=== PATIENT | female | born 1975 | race Caucasian/White ===

== ENCOUNTER 2023-01-04 15:22 | Outpatient (CLI) | payer OTHER, SELFPAY ==
[2023-01-04 16:19] LABS: Appearance Urine Cloudy (Clear); Bacteria Urine 4+ /hpf; Bilirubin Urine Negative (Negative); Blood Urine Negative (Negative); Color Urine Dark Yellow (Yellow); Glucose Urine UA Negative (Negative); Ketones Urine 1+ mg/dL (Negative); Leukocyte Esterase Ur 2+ LEU/UL (NEGATIVE); Need Manual Microscopic Reviewed; Nitrate Urine Negative (Negative); Non Pathogenic Casts 0-2; Protein Urine Negative (Negative); RBC Urine 0-2 /hpf (0-2); Specific Grav Ur 1.019 (1.001-1.035); Squamous Epithelial Cell Urine Few /hpf (Few); Urobilinogen Urine 0.2 mg/dL (<2.0)
[2023-01-04 16:21] LABS: Add Urine Microscopic? YES
[2023-01-04 16:38] LABS: Hematocrit 41.9 % (37.0-47.0); Hemoglobin 13.6 g/dL (12.0-15.0); Mean Corpuscular HGB Conc 32.5 g/dl (32-36); Mean Corpuscular Hemoglobin 30.4 pg (26-34); Mean Corpuscular Volume 93.5 fl (80-100); Mean Platelet Volume 9.3 fl (7.4-10.4); Platelet Count Result 297 k/mm3 (150-375); Red Blood Count 4.48 M/mm3 (4.2-5.4); Red Cell Distribution Width 13.2 % (11.5-14.5); White Blood Count 8.9 K/mm3 (4.5-10.0)
[2023-01-04 16:56] LABS: Alanine Aminotransferase 32 U/L (6-35); Albumin Level 3.8 g/dL (3.5-5.1); Alkaline Phosphatase 59 U/L (38-126); Anion Gap 6 mmol/L (8-16); Aspartate Amino Transferase 24 U/L (14-36); Bilirubin,Total 0.4 mg/dL (0.2-1.3); Blood Urea Nitrogen 8 mg/dL (7-17); Calcium 8.7 mg/dL (8.4-10.2); Carbon Dioxide 23 mmol/L (22-30); Chloride 104 mmol/L (98-107); Estimated Glomerular Filt Rate > 60; Glucose 71 mg/dL (65-110); Potassium 3.7 mmol/L (3.4-5.0); Sodium 133 mmol/L (137-145)
[2023-01-04 17:37] LABS: HIV 1/2 Ab P24 Ag Result Negative (Negative)
[2023-01-04 18:08] LABS: Hemoglobin A1C 4.8 % (<5.7)
[2023-01-04 18:28] LABS: Hepatitis B Surface Antigen Negative (Negative)
[2023-01-04 18:45] LABS: Hepatitis C Virus Antibody Negative (Negative)
[2023-01-05 10:29] LABS: Rapid Plasma Reagin Non-Reactive (NonReactive)
[2023-01-10 03:04] LABS: Hematocrit 43.1 % (35.0-45.0); MCH 30.8 pg (27.0-33.0); MCV 94.9 fL (80.0-100.0); RDW 13.1 % (11.0-15.0); Red Blood Cell Count 4.54 Mill/uL (3.80-5.10)
== END 2023-01-04 15:23 | disposition home or self-care (01) ==
LOC: ANHLAB 15:24
PROVIDERS: Visit Provider Obstetrics & Gynecology
DX: Z34.92 Encounter for supervision of normal pregnancy, unspecified, second trimester (principal); Z3A.00 Weeks of gestation of pregnancy not specified
CPT/HCPCS: 36415; 80053; 81001; 83021; 83036; 84443; 85027; 86592; 86703; 86787; 86803; 87086; 87340; G0432

== ENCOUNTER 2023-02-05 15:48 | Outpatient (CLI) | payer OTHER, SELFPAY ==
[2023-02-05 17:37] LABS: Rubella IgG Antibody 25.6 IU/ML
== END 2023-02-05 15:49 | disposition home or self-care (01) ==
LOC: ANHLAB 15:49
PROVIDERS: Visit Provider Registered Nurse
DX: O09.819 Supervision of pregnancy resulting from assisted reproductive technology, unspecified trimester (principal); Z3A.00 Weeks of gestation of pregnancy not specified
CPT/HCPCS: 36415; 86762; 86850; 86900; 86901

== ENCOUNTER 2023-04-03 09:28 | Observation (INO) | payer OTHER, SELFPAY ==
[2023-04-03 09:53] VITALS: BMI 35.2
[2023-04-03 09:57] VITALS: BP 137/75; PULSE 85; PULSE 86; O2SAT 95
--- NOTE | 2023-04-03 09:59 | OBADM ---
This patient, Susie eRa, admitted to the OB room 116 for observation. Patient/family oriented to hospital policies and general routines including ID bracelet, bed and alarms, visiting hours, pain management, procedures, bathroom and other care routines, personal items, smoking policy, room service/diet, and visiting hours. Patient/Family are encouraged to report perceived risks to care and to ask questions if they do not understand what they are told or what they should do.
[2023-04-03 10:00] VITALS: RESP 16; TEMP 36.3
[2023-04-03 10:02] VITALS: PULSE 85; O2SAT 96
[2023-04-03 10:07] VITALS: PULSE 80; O2SAT 96
[2023-04-03 10:12] VITALS: PULSE 78; O2SAT 97
[2023-04-03 10:55] LABS: Appearance Urine Clear (Clear); Bacteria Urine Rare /hpf; Bilirubin Urine Negative (Negative); Blood Urine Negative (Negative); Color Urine Yellow (Yellow); Glucose Urine UA Negative (Negative); Ketones Urine 1+ mg/dL (Negative); Leukocyte Esterase Ur Trace LEU/UL (Negative); Nitrate Urine Negative (Negative); Non Pathogenic Casts 0-2; Protein Urine Negative (Negative); RBC Urine 0-2 /hpf (0-2); Specific Grav Ur 1.011 (1.001-1.035); Squamous Epithelial Cell Urine None seen /hpf (Few); Urobilinogen Urine 0.2 mg/dL (<2.0); WBC Urine 0-5 /hpf; pH Urine 7.5 (5.0-9.0)
[2023-04-03 10:57] LABS: Add Urine Microscopic? YES
--- NOTE | 2023-05-01 11:44 | P.PNOB_ITS ---
OB - Triage/Final Diagnosis Visit Information Comments/Additional reasons for admission: I have assessed the risk for this patient, Susie Rea, and determined that she would benefit from observation care. Evaluation Laboratory results: Laboratory Tests 04/03/23 10:39 Urine Color Yellow Urine Appearance Clear Urine pH 7.5 Ur Specific [place] 1.011 Urine Protein Negative Urine Glucose (UA) Negative Urine Ketones 1+ H Ur Blood (Man) Negative Urine Nitrate Negative Urine Bilirubin Negative Urine Urobilinogen 0.2 Leukocyte Esterase Rfl Trace H Urine RBC 0-2 Urine WBC 0-5 Ur Squamous Epith Cells None seen Urine Bacteria Rare Urine Casts 0-2 Final Diagnosis (1) Threatened labor, antepartum: Code(s): O47.00 - False labor before 37 completed weeks of gestation, unspecified trimester Status: Acute
== END 2023-04-03 12:08 | disposition home or self-care (01) ==
PROVIDERS: Admitting Provider Obstetrics & Gynecology; Visit Provider Obstetrics & Gynecology
DX: O47.02 False labor before 37 completed weeks of gestation, second trimester (principal); Z3A.26 26 weeks gestation of pregnancy
CPT/HCPCS: 81001; G0378; G0379

== ENCOUNTER 2023-04-17 09:04 | Outpatient (CLI) | payer OTHER, SELFPAY ==
[2023-04-17 10:56] LABS: Basophils Percent Auto 0.1 % (0.2-1.2); Eosinophils Absolute Auto 0.3 K/mm3 (0-0.3); Hematocrit 40.1 % (37.0-47.0); Hemoglobin 13.2 g/dL (12.0-15.0); Immature Granulocyte Absolute 0.06 K/mm3 (0.00-0.031); Immature Granulocyte Percent A 0.6 % (0-0.5); Lymphocytes Absolute Auto 1.73 K/mm3 (0.9-3.2); Lymphocytes Percent Auto 17.7 % (18.3-44.2); Mean Corpuscular HGB Conc 32.9 g/dl (32-36); Mean Corpuscular Hemoglobin 30.3 pg (26-34); Mean Corpuscular Volume 92.2 fl (80-100); Mean Platelet Volume 9.6 fl (7.4-10.4); Monocytes Absolute Auto 0.3 K/mm3 (0.1-0.6); Monocytes Percent Auto 3.1 % (2.6-8.5); Neutrophils Absolute Auto 7.4 K/mm3 (1.3-6.7); Neutrophils Percent Auto 75.5 % (45.5-73.1); Platelet Count Result 234 k/mm3 (150-375); Red Blood Count 4.35 M/mm3 (4.2-5.4); Red Cell Distribution Width 13.6 % (11.5-14.5); White Blood Count 9.8 K/mm3 (4.5-10.0)
[2023-04-17 11:01] LABS: Glucose 1 Hour PP 50gm Dose 137 mg/dL
== END 2023-04-17 09:05 | disposition home or self-care (01) ==
PROVIDERS: Visit Provider Nurse Practitioner Family
DX: O09.819 Supervision of pregnancy resulting from assisted reproductive technology, unspecified trimester (principal); Z3A.00 Weeks of gestation of pregnancy not specified
CPT/HCPCS: 36415; 82947; 85025

== ENCOUNTER 2023-04-20 06:58 | Outpatient (CLI) | payer OTHER, SELFPAY ==
[2023-04-20 07:27] LABS: Glucose Fasting Gestational 83 mg/dL (>/=95)
[2023-04-20 09:39] LABS: Glucose 1 Hour Gest 166 mg/dL (>/=180)
[2023-04-20 10:09] LABS: Glucose 2 Hour Gest 150 mg/dL (>/= 155)
[2023-04-20 11:08] LABS: Glucose 3 Hour Gest 110 mg/dL (>/=140)
== END 2023-04-20 06:59 | disposition home or self-care (01) ==
LOC: ANHLAB 07:01
PROVIDERS: Visit Provider Nurse Practitioner Family
DX: O99.810 Abnormal glucose complicating pregnancy (principal); Z3A.00 Weeks of gestation of pregnancy not specified
CPT/HCPCS: 36415; 82951; 82952

== ENCOUNTER 2023-05-16 14:30 | Outpatient (CLI) | payer OTHER, SELFPAY ==
[2023-05-16 14:47] LABS: Basophils Percent Auto 0.3 % (0.2-1.2); Eosinophils Absolute Auto 0.2 K/mm3 (0-0.3); Eosinophils Percent Auto 1.9 % (0-4.4); Hematocrit 40.6 % (37.0-47.0); Hemoglobin 13.4 g/dL (12.0-15.0); Immature Granulocyte Absolute 0.06 K/mm3 (0.00-0.031); Immature Granulocyte Percent A 0.6 % (0-0.5); Lymphocytes Absolute Auto 2.05 K/mm3 (0.9-3.2); Lymphocytes Percent Auto 19.9 % (18.3-44.2); Mean Corpuscular Hemoglobin 30.7 pg (26-34); Mean Corpuscular Volume 92.9 fl (80-100); Mean Platelet Volume 9.3 fl (7.4-10.4); Monocytes Absolute Auto 0.5 K/mm3 (0.1-0.6); Neutrophils Absolute Auto 7.4 K/mm3 (1.3-6.7); Neutrophils Percent Auto 72.3 % (45.5-73.1); Platelet Count Result 219 k/mm3 (150-375); Red Blood Count 4.37 M/mm3 (4.2-5.4); Red Cell Distribution Width 14.2 % (11.5-14.5); White Blood Count 10.3 K/mm3 (4.5-10.0)
[2023-05-16 15:38] LABS: HIV 1/2 Ab P24 Ag Result Negative (Negative)
[2023-05-17 11:12] LABS: Rapid Plasma Reagin Non-Reactive (NonReactive)
== END 2023-05-16 14:31 | disposition home or self-care (01) ==
PROVIDERS: Visit Provider Nurse Practitioner Family
DX: O09.93 Supervision of high risk pregnancy, unspecified, third trimester (principal); Z3A.00 Weeks of gestation of pregnancy not specified
CPT/HCPCS: 36415; 85025; 86592; 86703; G0432

== ENCOUNTER 2023-05-30 20:38 | Observation (INO) | payer OTHER, SELFPAY ==
[2023-05-30] VITALS (80 sets, daily range): BP systolic 127–153; BP diastolic 75–95; PULSE 67–109; O2SAT 94–99; BMI 36.6
--- NOTE | ~2023-05-30 | US_ITS ---
EXAMINATION: US OB BPP wo non-stress DATE: 05/30/2023 17:53 INDICATION: Hypertension during third trimester TECHNIQUE: Real-time pelvic ultrasound was performed. The interpreting radiologist was not present fo r the study. COMPARISON: None. FINDINGS: There is a single living fetus in vertex presentation. The placenta is anterior. heart rate is 131 beats per minute (bpm). Biophysical profile performed by the technologist: breathing (30 sec sustained breathing in 30 minutes): 2 out of 2 movement (3 gross body movements in 30 minutes): 2 out of 2 tone (one episode of qtzoehc-uxvyrjfly-fllhaqp limb movement): 2 out of 2 Amniotic fluid pocket (2 cm): 2 out of 2 Total score: 8 out of 8 IMPRESSION: 1. Single living fetus in vertex presentation. 2. Biophysical profile 8 out of 8. Reviewed, dictated and finalized at location F.
[2023-05-30 16:34] LABS: Basophils Percent Auto 0.1 % (0.2-1.2); Eosinophils Absolute Auto 0.2 K/mm3 (0-0.3); Hematocrit 40.3 % (37.0-47.0); Hemoglobin 13.6 g/dL (12.0-15.0); Immature Granulocyte Absolute 0.04 K/mm3 (0.00-0.031); Immature Granulocyte Percent A 0.4 % (0-0.5); Lymphocytes Absolute Auto 1.86 K/mm3 (0.9-3.2); Lymphocytes Percent Auto 20.9 % (18.3-44.2); Mean Corpuscular HGB Conc 33.7 g/dl (32-36); Mean Corpuscular Hemoglobin 30.9 pg (26-34); Mean Corpuscular Volume 91.6 fl (80-100); Mean Platelet Volume 9.6 fl (7.4-10.4); Monocytes Absolute Auto 0.6 K/mm3 (0.1-0.6); Monocytes Percent Auto 6.5 % (2.6-8.5); Neutrophils Absolute Auto 6.2 K/mm3 (1.3-6.7); Neutrophils Percent Auto 70.1 % (45.5-73.1); Platelet Count Result 226 k/mm3 (150-375); White Blood Count 8.9 K/mm3 (4.5-10.0)
[2023-05-30 16:35] LABS: Appearance Urine Clear (Clear); Bilirubin Urine Negative (Negative); Blood Urine Negative (Negative); Color Urine Yellow (Yellow); Glucose Urine UA Negative (Negative); Ketones Urine Negative (Negative); Leukocyte Esterase Ur Negative LEU/UL (Negative); Nitrate Urine Negative (Negative); Protein Urine Negative (Negative); Urobilinogen Urine 0.2 mg/dL (<2.0); pH Urine 6.5 (5.0-9.0)
[2023-05-30 16:41] LABS: Alanine Aminotransferase 17 U/L (6-35); Albumin Level 3.3 g/dL (3.5-5.1); Alkaline Phosphatase 126 U/L (38-126); Anion Gap 4 mmol/L (8-16); Aspartate Amino Transferase 21 U/L (14-36); Bilirubin,Total 0.4 mg/dL (0.2-1.3); Blood Urea Nitrogen 5 mg/dL (7-17); Calcium 9.3 mg/dL (8.4-10.2); Carbon Dioxide 20 mmol/L (22-30); Chloride 107 mmol/L (98-107); Estimated Glomerular Filt Rate > 60; Glucose 87 mg/dL (65-110); Potassium 3.9 mmol/L (3.4-5.0); Sodium 131 mmol/L (137-145); Uric Acid 4.2 mg/dL (2.5-7.5)
[2023-05-30 16:50] LABS: Add Urine Microscopic? NO; Specific Grav Ur 1.004 (1.001-1.035)
[2023-05-30 17:19] LABS: Creatinine Urine 16.8 mg/dL; Total Protein Urine Random 16 mg/dL; Ur Ttl Prot Creatinine Ratio 0.95 mg/mg (0-0.20)
[2023-05-30] MEDS: TERBUTALINE SULFATE 1 MG/ML VIAL 0.25 MG SUB-Q ×2 (18:28→19:32)
[2023-05-30] MEDS: LABETALOL HCL 100 MG TABLET 200 MG PO (18:28)
[2023-05-30] MEDS: BETAMETHASONE SOD PHOS/ACETATE 30 MG/5 ML VIAL 12 MG IM (18:28)
--- NOTE | 2023-05-30 18:37 | PC.NURSE ---
1755: RN phoned Dr. Yo no answer at this time 1809: RN phoned supervisor extrusion physician Dr. Gee. RN informed OB of patient's complaint of high blood pressures, vital signs, contraction pattern, FHTs, BPP, SVE, and lab results. OB aware that contractions palpate mild and patient does not feel any contractions. Orders to give patient Terbutaline, Betamethasone, and 200 of PO Labetalol now. Orders to discharge patient home if patient's contractions decrease in frequency with 200 PO of Labetalol BID as well as a 24 urine. Orders for patient to get her second dose of steroids when she returns to turn in her 24 hour urine and obtain a BP check at that time as well. 1810: Report given to Nurse Chloe Case.
--- NOTE | 2023-05-30 19:20 | PC.NURSE ---
Updated Dr. Gee on pt contractions every two to two and a half minutes after a dose of terbutaline 50 minutes ago. Orders received to administer another dose of terbutaline and monitor the next hour.
--- NOTE | 2023-05-30 20:29 | PC.NURSE ---
Called Dr. Gee to update on pt and contractions, orders received to perform cervical exam.
--- NOTE | 2023-05-30 20:38 | PC.NURSE ---
Updated Dr. Gee on cervical exam. Orders received to initiate IV access, administer 1000 mL fluid bolus, Lactated Ringer's and continuous fluids at 125 ml an hour after.
[2023-05-30] MEDS: LACTATED RINGERS 1,000 ML 999 ML IV CONT (21:12)
[2023-05-30] MEDS: LACTATED RINGERS 1,000 ML 125 ML IV CONT (22:16)
--- NOTE | 2023-05-30 22:26 | PC.NURSE ---
Updated Dr. Gee on pt and contractions, orders received to administer Procardia 20 mg.
[2023-05-30] MEDS: NIFEdipine 10 MG CAPSULE 20 MG PO (22:40)
[2023-05-31] VITALS (98 sets, daily range): BP systolic 104–117; BP diastolic 56–70; PULSE 69–114; RESP 16; O2SAT 92–99; BMI 36.8
[2023-05-31] MEDS: LACTATED RINGERS 1,000 ML 125 ML IV CONT (06:24)
--- NOTE | 2023-05-31 06:48 | PC.NURSE ---
Pt declines offer of ice pack or Tylenol for Headache. Pt states she is use to chronic migraines and this one is nothing.
[2023-05-31] MEDS: LABETALOL HCL 100 MG TABLET 200 MG PO (06:55)
--- NOTE | 2023-05-31 07:17 | PM.OBTRLD ---
OB - Triage/Final Diagnosis Visit Information Reason for evaluation: threatened labor and other (hypertension) Comments/Additional reasons for admission: I have assessed the risk for this patient, Susie Rea, and determined that she would benefit from observation care. Evaluation Cervical dilation (cm): 1 Cervical effacement (%): 90 station: -1 Laboratory results: Laboratory Tests 05/30/23 16:20 WBC 8.9 RBC 4.40 Hgb 13.6 Hct 40.3 MCV 91.6 MCH 30.9 MCHC 33.7 RDW 14.0 Plt Count 226 MPV 9.6 Immature Gran % (Auto) 0.4 Neut % (Auto) 70.1 Lymph % (Auto) 20.9 [place] % (Auto) 6.5 Eos % (Auto) 2.0 Baso % (Auto) 0.1 L Lymph # (Auto) 1.86 [place] # (Auto) 0.6 Eos # (Auto) 0.2 Baso # (Auto) 0.0 Abs Immat Gran (auto) 0.04 H Absolute Neuts (auto) 6.2 Absolute Nucleated RBC 0.000 Nucleated RBC % 0.0 Sodium 131 L Potassium 3.9 Chloride 107 Carbon Dioxide 20 L Anion Gap 4 L BUN 5 L Creatinine 0.50 L Estim Creat Clear Calc Not Reportable Estimated GFR > 60 Glucose 87 Uric Acid 4.2 Calcium 9.3 Total Bilirubin 0.4 AST 21 ALT 17 Alkaline Phosphatase 126 Total Protein 6.0 L Albumin 3.3 L Urine Color Yellow Urine Appearance Clear Urine pH 6.5 Ur Specific [place] 1.004 Urine Protein Negative Urine Glucose (UA) Negative Urine Ketones Negative Ur Blood (Man) Negative Urine Nitrate Negative Urine Bilirubin Negative Urine Urobilinogen 0.2 Leukocyte Esterase Rfl Negative U Random Total Protein 16 Urine Creatinine 16.8 Protein/Creat Ratio 2 0.95 H Vital signs: Vital Signs - 24 hr 05/30/23 16:18 05/30/23 16:30 05/30/23 16:45 Pulse Rate 75 77 70 Blood Pressure 149/91 H 153/95 H 153/85 H Blood Pressure [Right Arm] Pulse Oximetry 05/30/23 17:16 05/30/23 18:03 05/30/23 18:15 Pulse Rate 76 69 67 Blood Pressure 137/87 153/90 H 153/85 H Blood Pressure [Right Arm] Pulse Oximetry 05/30/23 18:26 05/30/23 18:31 05/30/23 18:36 Pulse Rate Blood Pressure Blood Pressure [Right Arm] Pulse Oximetry 95 97 98 05/30/23 18:41 05/30/23 18:45 05/30/23 18:46 Pulse Rate 70 Blood Pressure 145/89 H Blood Pressure [Right Arm] Pulse Oximetry 98 97 05/30/23 18:51 05/30/23 18:56 05/30/23 19:00 Pulse Rate 74 Blood Pressure 143/86 H Blood Pressure [Right Arm] Pulse Oximetry 96 97 05/30/23 19:01 05/30/23 19:06 05/30/23 19:11 Pulse Rate Blood Pressure Blood Pressure [Right Arm] Pulse Oximetry 97 96 96 05/30/23 19:15 05/30/23 19:16 05/30/23 19:21 Pulse Rate 82 Blood Pressure 137/88 Blood Pressure [Right Arm] Pulse Oximetry 97 98 05/30/23 19:26 05/30/23 19:30 05/30/23 19:31 Pulse Rate 85 Blood Pressure 141/89 H Blood Pressure [Right Arm] Pulse Oximetry 98 98 05/30/23 19:36 05/30/23 19:41 05/30/23 19:45 Pulse Rate 97 Blood Pressure 132/85 Blood Pressure [Right Arm] Pulse Oximetry 97 98 05/30/23 19:46 05/30/23 19:51 05/30/23 19:56 Pulse Rate Blood Pressure Blood Pressure [Right Arm] Pulse Oximetry 96 96 97 05/30/23 20:00 05/30/23 20:01 05/30/23 20:06 Pulse Rate 88 Blood Pressure 128/82 Blood Pressure [Right Arm] Pulse Oximetry 96 96 05/30/23 20:11 05/30/23 20:15 05/30/23 20:16 Pulse Rate 96 Blood Pressure 144/83 H Blood Pressure [Right Arm] Pulse Oximetry 97 97 05/30/23 20:21 05/30/23 20:26 05/30/23 20:30 Pulse Rate 87 Blood Pressure 139/81 Blood Pressure [Right Arm] Pulse Oximetry 96 96 05/30/23 20:31 05/30/23 20:37 05/30/23 20:42 Pulse Rate Blood Pressure Blood Pressure [Right Arm] Pulse Oximetry 96 97 96 05/30/23 20:45 05/30/23 20:47 05/30/23 20:47 Pulse Rate 82 Blood Pressure 131/75 Blood Pressure [Right Arm] Pulse Oximetry 96 96 05/30/23 20:52 05/30/23 20:57 05/30/23 21:00 Pulse Rate 85 Blood Pressure 127/78 Blood Pressure [Right Arm] Pulse Oxi
[2023-05-31] MEDS: ACETAMINOPHEN 500 MG TABLET 1000 MG PO (08:35)
--- NOTE | 2023-05-31 08:39 | OBADM ---
This patient, Susie Rea, admitted to the OB room OB Post 115 for observation. Patient/family oriented to hospital policies and general routines including ID bracelet, bed and alarms, visiting hours, pain management, procedures, bathroom and other care routines, personal items, smoking policy, room service/diet, and visiting hours. Patient/Family are encouraged to report perceived risks to care and to ask questions if they do not understand what they are told or what they should do.
--- NOTE | 2023-05-31 11:06 | PC.NURSE ---
Dr. Yo returned page and informed of pt finished eating about 1 hr ago and still has a dull headache she rates as a 1-2 out of 10. Orders for discharge received.
--- NOTE | 2023-05-31 11:15 | PC.NURSE ---
Called Dr. Yo's office to have her call me back to discuss whether she wants pt to continue her Labetalol at home.
--- NOTE | 2023-05-31 11:20 | PC.NURSE ---
Dr. Yo returned call and asked her if she wanted pt to continue the Labetalol at home. Discussed what her highest BP's were last night prior to starting the Labetalol. wants pt to continue and she will send RX.
[2023-05-31] MEDS: HYDROCORTISONE 2.5% CREAM 30 GM TUBE 1 APPLIC TOPICAL (11:58)
== END 2023-05-31 12:05 | disposition home or self-care (01) ==
LOC: ANHOBOP 21:25 → ANHOBPP 05-31 11:17 → ANHLDR 06-01 10:28 → ANHOBPP 06-01 10:28
PROVIDERS: Admitting Provider Obstetrics & Gynecology; Visit Provider Student in an Organized Health Care Education/Training Program
DX: O47.9 False labor, unspecified (principal); O16.3 Unspecified maternal hypertension, third trimester; Z3A.35 35 weeks gestation of pregnancy
CPT/HCPCS: 36415; 59025; 76819; 80053; 81050; 82570; 82575; 84156; 84550; 85025; 96360; 96361; 96368; 96372; 99199; A9270; G0378; G0379; J0702; J3105; J7120

== ENCOUNTER 2023-05-31 18:24 | Outpatient (CLI) | payer OTHER, SELFPAY ==
[2023-05-31 18:37] VITALS: BMI 36.8
[2023-05-31] MEDS: BETAMETHASONE SOD PHOS/ACETATE 30 MG/5 ML VIAL 12 MG IM (18:40)
[2023-05-31 19:19] LABS: Collection Time Urine 24 HOURS
[2023-05-31 19:20] LABS: Patient Weight 195 Lbs; Total Volume 24 Hour Urine 3800 ml
[2023-05-31 19:46] LABS: Creatinine Clearance Urine 163.2 ml/min (75-125); Creatinine Urine 33.3 mg/dL; Total Protein Urine 24 Hr 228 mg/24hr (28-141); Total Protein Urine Random 6 mg/dL
== END 2023-05-31 18:25 | disposition home or self-care (01) ==
LOC: ANHOBOP 18:30
PROVIDERS: Visit Provider Obstetrics & Gynecology
DX: O13.9 Gestational [pregnancy-induced] hypertension without significant proteinuria, unspecified trimester (principal); Z3A.00 Weeks of gestation of pregnancy not specified
CPT/HCPCS: 81050; 82575; 84156; 96372; J0702

== ENCOUNTER 2023-06-04 16:06 | Outpatient (RCR) | payer OTHER, SELFPAY ==
--- NOTE | ~2023-06-04 | US_ITS ---
US OB limited 06/04/2023 16:53 Indication: Amniotic fluid index check. Procedure: High-resolution Limited obstetrical ultrasound Comparison: No prior studies for comparison. Findings: There is a single living intrauterine in vertex presentation. heart rate is 157 BPM. Placenta is anterior. Amniotic fluid volume is normal. JIHAN measures 19.8 cm. Impression: 1: Normal amniotic fluid volume. Reviewed, dictated and finalized at location B. Impression: 1: Normal amniotic fluid volume.
[2023-06-04 16:32] LABS: Basophils Percent Auto 0.1 % (0.2-1.2); Eosinophils Absolute Auto 0.4 K/mm3 (0-0.3); Eosinophils Percent Auto 4.8 % (0-4.4); Hematocrit 39.4 % (37.0-47.0); Hemoglobin 13.1 g/dL (12.0-15.0); Immature Granulocyte Absolute 0.05 K/mm3 (0.00-0.031); Immature Granulocyte Percent A 0.6 % (0-0.5); Lymphocytes Absolute Auto 1.67 K/mm3 (0.9-3.2); Lymphocytes Percent Auto 18.8 % (18.3-44.2); Mean Corpuscular HGB Conc 33.2 g/dl (32-36); Mean Corpuscular Volume 93.4 fl (80-100); Mean Platelet Volume 9.6 fl (7.4-10.4); Monocytes Absolute Auto 0.6 K/mm3 (0.1-0.6); Monocytes Percent Auto 6.9 % (2.6-8.5); Neutrophils Absolute Auto 6.1 K/mm3 (1.3-6.7); Neutrophils Percent Auto 68.8 % (45.5-73.1); Platelet Count Result 211 k/mm3 (150-375); Red Blood Count 4.22 M/mm3 (4.2-5.4); Red Cell Distribution Width 14.3 % (11.5-14.5); White Blood Count 8.9 K/mm3 (4.5-10.0)
[2023-06-04 16:45] LABS: Alanine Aminotransferase 17 U/L (6-35); Albumin Level 3.2 g/dL (3.5-5.1); Alkaline Phosphatase 111 U/L (38-126); Anion Gap 6 mmol/L (8-16); Aspartate Amino Transferase 16 U/L (14-36); Bilirubin,Total 0.4 mg/dL (0.2-1.3); Blood Urea Nitrogen 8 mg/dL (7-17); Calcium 8.7 mg/dL (8.4-10.2); Carbon Dioxide 18 mmol/L (22-30); Chloride 108 mmol/L (98-107); Estimated Glomerular Filt Rate > 60; Glucose 86 mg/dL (65-110); Potassium 3.8 mmol/L (3.4-5.0); Sodium 132 mmol/L (137-145); Uric Acid 4.5 mg/dL (2.5-7.5)
[2023-06-04 17:07] VITALS: BP 129/84; PULSE 82
== END 2023-09-02 23:59 | disposition home or self-care (01) ==
LOC: ANHOBOP 16:06
PROVIDERS: Visit Provider Obstetrics & Gynecology
DX: O14.93 Unspecified pre-eclampsia, third trimester (principal); O09.813 Supervision of pregnancy resulting from assisted reproductive technology, third trimester; O09.513 Supervision of elderly primigravida, third trimester; Z3A.35 35 weeks gestation of pregnancy
CPT/HCPCS: 36415; 59025; 76815; 80053; 84550; 85025

== ENCOUNTER 2023-06-05 12:29 | Observation (INO) | payer OTHER, SELFPAY ==
[2023-06-05] VITALS (29 sets, daily range): BP systolic 135; BP diastolic 77–87; PULSE 71–103; RESP 16; TEMP 36.7; O2SAT 95–100
[2023-06-05 13:22] LABS: Alanine Aminotransferase 15 U/L (6-35); Albumin Level 3.2 g/dL (3.5-5.1); Alkaline Phosphatase 119 U/L (38-126); Anion Gap 5 mmol/L (4-12); Aspartate Amino Transferase 15 U/L (14-36); Bilirubin,Total 0.4 mg/dL (0.2-1.3); Blood Urea Nitrogen 8 mg/dL (7-17); Calcium 8.9 mg/dL (8.4-10.2); Carbon Dioxide 22 mmol/L (22-30); Chloride 107 mmol/L (98-107); Estimated Glomerular Filt Rate > 60; Glucose 127 mg/dL (65-110); Potassium 3.8 mmol/L (3.4-5.0); Sodium 134 mmol/L (137-145)
--- NOTE | 2023-06-05 13:26 | PC.NURSE ---
Called and left voicemail for Dr. Yo to call unit back for lab results received.
--- NOTE | 2023-06-05 13:59 | PC.NURSE ---
Called Dr. Yo again for followup, no answer. Called answering service. Left message with answering radiology services manager.
--- NOTE | 2023-06-05 14:05 | PC.NURSE ---
Called and spoke with Robert office nurse, requested to speak with Dr. Yo. Robert states she will attempt to locate her.
--- NOTE | 2023-06-05 14:09 | OBADM ---
This patient, Susie Rea, admitted to the OB room OB 115 for observation d/t c/o dizziness, SOB, and feeling faint. Patient/family oriented to hospital policies and general routines including ID bracelet, bed and alarms, visiting hours, pain management, procedures, bathroom and other care routines, personal items, smoking policy, room service/diet, and visiting hours. Patient/Family are encouraged to report perceived risks to care and to ask questions if they do not understand what they are told or what they should do.
--- NOTE | 2023-06-05 14:34 | PC.NURSE ---
THis RN received call back from Dr. Yo on the phone. MD informed of pt complaints, vital signs, and FHT. MD verbalized understanding, discharge orders given. Believes this may be -induced vertigo, would like pt to take benedryl or meclazine over the counter as needed. RN repeated orders back to confirm.
--- NOTE | 2023-06-27 15:09 | PM.OBTRLD ---
OB - Triage/Final Diagnosis Visit Information Comments/Additional reasons for admission: I have assessed the risk for this patient, Susie Rea, and determined that she would benefit from observation care. Evaluation Laboratory results: Laboratory Tests 06/05/23 12:59 Sodium 134 L Potassium 3.8 Chloride 107 Carbon Dioxide 22 Anion Gap 5 L BUN 8 Creatinine 0.50 L Estim Creat Clear Calc Not Reportable Estimated GFR > 60 Glucose 127 H Calcium 8.9 Total Bilirubin 0.4 AST 15 ALT 15 Alkaline Phosphatase 119 Total Protein 6.0 L Albumin 3.2 L Final Diagnosis (1) Dizziness: Code(s): R42 - Dizziness and giddiness Status: Acute
== END 2023-06-05 14:35 | disposition home or self-care (01) ==
PROVIDERS: Admitting Provider Obstetrics & Gynecology; Visit Provider Obstetrics & Gynecology
DX: O26.893 Other specified pregnancy related conditions, third trimester (principal); R42 Dizziness and giddiness; Z3A.35 35 weeks gestation of pregnancy
CPT/HCPCS: 36415; 59025; 80053; G0378; G0379

== ENCOUNTER 2023-06-13 04:59 | Inpatient (IN) | payer OTHER, SELFPAY ==
[2023-06-13] VITALS (124 sets, daily range): BP systolic 101–150; BP diastolic 53–110; PULSE 62–152; RESP 20; TEMP 36.4–36.9; O2SAT 82–100; BMI 36.6
[2023-06-13 05:37] LABS: Basophils Percent Auto 0.3 % (0.2-1.2); Eosinophils Absolute Auto 0.2 K/mm3 (0-0.3); Eosinophils Percent Auto 2.3 % (0-4.4); Hematocrit 39.2 % (37.0-47.0); Hemoglobin 13.3 g/dL (12.0-15.0); Immature Granulocyte Absolute 0.03 K/mm3 (0.00-0.031); Immature Granulocyte Percent A 0.4 % (0-0.5); Lymphocytes Absolute Auto 2.23 K/mm3 (0.9-3.2); Lymphocytes Percent Auto 28.7 % (18.3-44.2); Mean Corpuscular HGB Conc 33.9 g/dl (32-36); Mean Corpuscular Hemoglobin 31.1 pg (26-34); Mean Corpuscular Volume 91.6 fl (80-100); Mean Platelet Volume 10.1 fl (7.4-10.4); Monocytes Absolute Auto 0.4 K/mm3 (0.1-0.6); Monocytes Percent Auto 4.9 % (2.6-8.5); Neutrophils Absolute Auto 4.9 K/mm3 (1.3-6.7); Neutrophils Percent Auto 63.4 % (45.5-73.1); Platelet Count Result 236 k/mm3 (150-375); Red Blood Count 4.28 M/mm3 (4.2-5.4); Red Cell Distribution Width 13.5 % (11.5-14.5); White Blood Count 7.8 K/mm3 (4.5-10.0)
[2023-06-13] MEDS: LACTATED RINGERS 1,000 ML 125 ML IV CONT ×3 (05:39→14:53)
[2023-06-13] MEDS: OXYTOCIN 30 UNITS/NS 500 ML 30 UNITS/500 ML BAG IV CONT (05:39)
[2023-06-13 05:47] LABS: Alanine Aminotransferase 20 U/L (6-35); Albumin Level 3.2 g/dL (3.5-5.1); Alkaline Phosphatase 145 U/L (38-126); Anion Gap 4 mmol/L (4-12); Aspartate Amino Transferase 21 U/L (14-36); Bilirubin,Total 0.6 mg/dL (0.2-1.3); Blood Urea Nitrogen 10 mg/dL (7-17); Calcium 9.2 mg/dL (8.4-10.2); Carbon Dioxide 19 mmol/L (22-30); Chloride 110 mmol/L (98-107); Estimated CRCL calculation 100 ml/min; Estimated Glomerular Filt Rate > 60; Glucose 129 mg/dL (65-110); Sodium 133 mmol/L (137-145)
[2023-06-13 05:55] LABS: Uric Acid 5.3 mg/dL (2.5-7.5)
[2023-06-13 06:31] LABS: Potassium 3.3 mmol/L (3.4-5.0)
--- NOTE | 2023-06-13 08:04 | PM.IMHP ---
H&P: HPI History of Present Illness Date/Time: 06/13/23 08:04 Chief Complaint: Induction of labor Narrative: Patient is a 47-year-old at 37 weeks with an EDC of 07/04/2023 conceived by IVF. course significant for gestational hypertension no signs or symptoms of severe disease. She was recommended for induction of labor due to gestational hypertension without severe symptoms. course also significant for advanced maternal age. She has had aneuploid testing at conception negative PGT-A. History of anxiety which has been stable. She has had normal surveillance testing. Review of Systems Review of Systems: All systems reviewed & are unremarkable except as noted in HPI and below Constitutional: Constitutional: Reports no additional constitutional complaints and Denies headache(s) Eyes: Eyes: Denies spots in vision ENT: Reports system reviewed and no additional complaints, except as documented and Denies headache(s) Cardiovascular: Cardiovascular: Denies chest pain and Denies dyspnea Respiratory: Respiratory: Denies dyspnea Gastrointestinal: Gastrointestinal: Reports no additional gastrointestinal complaints Genitourinary: Genitourinary: Reports amenorrhea Musculoskeletal: Musculoskeletal: Reports no additional musculoskeletal complaints Integumentary/Breasts: Skin/Breast: Denies breast mass and Denies rash Neurologic: Denies headache(s) Psychiatric: Psychiatric: Reports no additional psychiatric complaints PMFSH Past Medical History Medical History Encounter for related examination in second trimester Migraine resulting from in-vitro fertilization Surgical History Surgical History [place] teeth extracted Family History Family History Father Asthma Hypertension Heart disease Mother Heart disease Sibling Alcoholism Hypertension Grandparent Stomach cancer Cerebrovascular accident Grandparent Lung cancer Social History Social History Smoking status: Never smoker Second hand tobacco smoke exposure: No Alcohol intake: former Substance use: never Do You Feel Safe in your Home?: Yes Lack of Transportation: No Lack of Food: Never True Current Housing: I Have Housing Concerned About Future Housing: No Difficulty Paying Gas/Electric Bills: No Difficulty Paying for Meds: No Currently Unemployed: No Education: Bachelor's Degree Difficulty w/ Childcare or Family Care: No Living arrangements: with family Additional living arrangements comments: Occupation/Education: occupation 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 Gender identity (if verbalized by the patient): Female Sexual Orientation (if Verbalized by the Patient): Lesbian, [place], or Homosexual Spiritual care concerns: No Medical History Encounter for related examination in second trimester Migraine resulting from in-vitro fertilization Surgical History [place] teeth extracted Family History Father Asthma Hypertension Heart disease Mother Heart disease Sibling Alcoholism Hypertension Grandparent Stomach cancer Cerebrovascular accident Grandparent Lung cancer Social History Smoking status: Never smoker Second hand tobacco smoke exposure: No Alcohol intake: former Substance use: never Do You Feel Safe in your Home?: Yes Lack of Transportation: No Lack of Food: Never True Current Housing: I Have Housing Concerned About Future Housing: No Difficu
[2023-06-13] MEDS: LABETALOL HCL 100 MG TABLET 200 MG PO ×2 (08:37→21:04)
[2023-06-13 09:42] LABS: Rapid Plasma Reagin Non-Reactive (NonReactive)
--- NOTE | 2023-06-13 11:40 | WPDANESEPP ---
Anes - Eval Pre Procedure Procedure: labor epidural Date/Time: 06/13/23 11:40 Surgeon: rigo Preop Diagnosis: pain during labor Pre Op Diagnosis: IOL Patient Data Age: 47 Gender: F Height: 1.55 m Weight: 88 kg Last Vital Signs Temp 36.6 C 06/13/23 09:00 Pulse 72 06/13/23 11:31 BP 132/80 06/13/23 11:31 O2 Del Method Room Air 06/13/23 05:20 Allergies Allergy/AdvReac Type Severity Reaction Status Date / Time No Known Allergies Allergy Verified 06/06/23 15:15 Home Medications Medication Instructions Recorded Confirmed Type citalopram 40 mg tablet 40 mg PO DAILY 12/05/22 06/05/23 History vitamins no.121-iron 28 1 tablet PO DAILY 12/05/22 06/05/23 History mg-folic acid 800 mcg tablet aspirin 81 mg tablet,delayed 81 mg PO DAILY 01/04/23 06/05/23 History release (Adult Low Dose Aspirin) magnesium oxide 500 mg capsule 500 mg PO DAILY 01/04/23 06/05/23 History riboflavin (vitamin B2) 50 mg 50 mg PO DAILY 01/04/23 06/05/23 History tablet labetalol 200 mg tablet 200 mg PO Q12H #60 tabs 06/12/23 06/13/23 Rx Laboratory Tests 06/13/23 05:09 WBC 7.8 K/mm3 (4.5-10.0) RBC 4.28 M/mm3 (4.2-5.4) Hgb 13.3 g/dL (12.0-15.0) Hct 39.2 % (37.0-47.0) MCV 91.6 fl (80-100) MCH 31.1 pg (26-34) MCHC 33.9 g/dl (32-36) RDW 13.5 % (11.5-14.5) Plt Count 236 k/mm3 (150-375) MPV 10.1 fl (7.4-10.4) Immature Gran % (Auto) 0.4 % (0-0.5) Neut % (Auto) 63.4 % (45.5-73.1) Lymph % (Auto) 28.7 % (18.3-44.2) [place] % (Auto) 4.9 % (2.6-8.5) Eos % (Auto) 2.3 % (0-4.4) Baso % (Auto) 0.3 % (0.2-1.2) Lymph # (Auto) 2.23 K/mm3 (0.9-3.2) [place] # (Auto) 0.4 K/mm3 (0.1-0.6) Eos # (Auto) 0.2 K/mm3 (0-0.3) Baso # (Auto) 0.0 K/mm3 (0.0-0.1) Abs Immat Gran (auto) 0.03 K/mm3 (0.00-0.031) Absolute Neuts (auto) 4.9 K/mm3 (1.3-6.7) Absolute Nucleated RBC 0.000 K/mm3 (0.0-0.012) Nucleated RBC % 0.0 % (0.0-0.2) Sodium 133 L mmol/L (137-145) Potassium 3.3 L mmol/L (3.4-5.0) Chloride 110 H mmol/L (98-107) Carbon Dioxide 19 L mmol/L (22-30) Anion Gap 4 L mmol/L (4-12) BUN 10 mg/dL (7-17) Creatinine 0.60 L mg/dL (0.7-1.0) Estim Creat Clear Calc 100 ml/min Estimated GFR > 60 (59 - ) Glucose 129 H mg/dL (65-110) Uric Acid 5.3 mg/dL (2.5-7.5) Calcium 9.2 mg/dL (8.4-10.2) Total Bilirubin 0.6 mg/dL (0.2-1.3) AST 21 U/L (14-36) ALT 20 U/L (6-35) Alkaline Phosphatase 145 H U/L (38-126) Total Protein 6.0 L g/dL (6.3-8.2) Albumin 3.2 L g/dL (3.5-5.1) RPR Non-reactive (NonReactive) Blood Type A Positive Antibody Screen Negative Patient hx anesthesia problems: none Family hx anesthesia problems: none Results Review: All pre-operative results and documents have been reviewed as part of the pre-operative evaluation. [facility] Past Medical History Medical History (Updated 06/13/23 @ 11:40 by Linn Pope CRNA) Encounter for related examination in second trimester Migraine PIH ( induced hypertension) resulting from in-vitro fertilization Surgical History Surgical History [place] teeth extracted Family History Family History Father Asthma Hypertension Heart disease Mother Heart disease Sibling Alcoholism Hypertension Grandparent Stomach cancer Cerebrovascular accident Grandparent Lung cancer Social History Social History Smoking status: Never smoker Second hand tobacco smoke exposure: No Alcohol intake: former Substance use: never Do You Feel Safe in your Home?: Yes Lack of Transportation: No Lack of Food: Never True Current Ho
--- NOTE | 2023-06-13 15:08 | PM.OBPNVD ---
OB - PN: Subj Subjective Date/time seen: 06/13/23 0820 FHT 135, Cat 1, irreg ctx, cervix 360/-3, AROM clear, continue Pitocin induction. OB - PN: Obj Data Labs 06/13/23 05:09 06/13/23 05:09 Labs: Laboratory Results - last 24 hr 06/13/23 05:09 WBC 7.8 RBC 4.28 Hgb 13.3 Hct 39.2 MCV 91.6 MCH 31.1 MCHC 33.9 RDW 13.5 Plt Count 236 MPV 10.1 Immature Gran % (Auto) 0.4 Neut % (Auto) 63.4 Lymph % (Auto) 28.7 [place] % (Auto) 4.9 Eos % (Auto) 2.3 Baso % (Auto) 0.3 Lymph # (Auto) 2.23 [place] # (Auto) 0.4 Eos # (Auto) 0.2 Baso # (Auto) 0.0 Abs Immat Gran (auto) 0.03 Absolute Neuts (auto) 4.9 Absolute Nucleated RBC 0.000 Nucleated RBC % 0.0 Sodium 133 L Potassium 3.3 L Chloride 110 H Carbon Dioxide 19 L Anion Gap 4 L BUN 10 Creatinine 0.60 L Estim Creat Clear Calc 100 Estimated GFR > 60 Glucose 129 H Uric Acid 5.3 Calcium 9.2 Total Bilirubin 0.6 AST 21 ALT 20 Alkaline Phosphatase 145 H Total Protein 6.0 L Albumin 3.2 L RPR Non-reactive Blood Type A Positive Antibody Screen Negative OB - PN A/P Time Spent With Patient Time: Total time spent is greater than 50% in coordination of care (as documented) at patient's floor/unit and/or counseling patient:
[2023-06-13] MEDS: LIDOCAINE HCL 1% LOCAL INJ 20 ML VIAL (16:55)
[2023-06-13] MEDS: OXYTOCIN 30 UNITS/NS 500 ML 30 UNITS/500 ML BAG 999 UNITS IV CONT (16:55)
--- NOTE | 2023-06-13 17:00 | P.PCNOB_ITS ---
OB - Vaginal Delivery Note Procedure Delivery date: 06/13/23 Events: Gestational Hypertension and Other (IVF conception, advanced maternal age) Intrapartal Events: Decelerations (moderate decelerations with pushing) Induction method: Per Pitocin Protocol Delivery augmentation: Rupture of Membranes (clear) Delivery monitor: External FHT, External Uterine and Internal Uterine Route of delivery: Episiotomy description: None Laceration Description: Perineal - 1st Degree Delivery repair: vicryl (3.0 vicryl) Specimen: No Quantitative Blood Loss (ml): 150 Anesthesia type: Epidural Disposition: Floor Complications: No immediate complications Narrative: She was admitted for [facility] for gestational hypertension. Pitocin started. She had AROM clear fluid. She progressed to active labor. She had epidural placed on request. She dilated to complete. She delivered a male infant, rotated to SAUL at introitus, two loose nuchal cords manually reduced, at time of suction of nose she pushed and anterior shoulder delivered and rest of infant delivered. placed on maternal abdomen and cord doubly clamped and cut and nursery staff placed at warmer. There were noted two loose nuchal cords. The cord was very long. [place] Baby Date of : 06/13/23 Time of : 16:37 Weeks of gestation at delivery: 37 Infant gender: Male Weight (pounds): 6 Weight (ounces): 2 presentation: vertex position: Right Occiput Anterior Placenta delivery description: Spontaneous Cord Vessel Description: 3 Vessels, Nuchal Cord (x 2), Loose (x2), Reduced (manually) and Clamped/Cut score one minute: 6 score five minutes: 8 AMG Delivery Billing Delivery Delivery: Delivery Charge
[2023-06-13] MEDS: CITALOPRAM HYDROBROMIDE 20 MG TABLET 40 MG PO (18:24)
[2023-06-13] MEDS: HYDROCORTISONE 2.5% CREAM 30 GM TUBE 1 APPLIC TOPICAL (18:24)
[2023-06-13] MEDS: BENZOCAINE 20% AER SPR (*SP) 56 GM CAN 1 SPRAY TOPICAL (20:20)
--- NOTE | 2023-06-13 20:36 | OBPPTRN ---
Patient transferred to post room #279 via wheelchair. Support person present. Oriented to unit, room, information board, rooming in, admission packet and security measures. Patient verbalizes understanding.
[2023-06-13] MEDS: WITCH HAZEL 40 PADS 1 PAD TOPICAL (20:49)
[2023-06-14] VITALS (7 sets, daily range): BP systolic 100–119; BP diastolic 58–82; PULSE 54–88; RESP 16–20; TEMP 36.6–37.2; O2SAT 20–99
--- NOTE | 2023-06-14 02:04 | PC.NURSE ---
0204 - This RN called Sabrina Agustin, anesthesia, to notify that the patient does not have feeling and cannot put pressure on her right leg 12 hours post epidural. Sabrina Agustin stated to call for assessment in the morning unless it is an emergency with airway or bleeding and stated there is nothing I can do about this at two in the morning . Sabrina Agustin would not assess the patient and told this RN to notify the anesthesiologist at 0730.
[2023-06-14 04:45] LABS: Hemoglobin 12.3 g/dL (12.0-15.0)
--- NOTE | 2023-06-14 08:17 | WPDANLDPN2 ---
Anes-Prog Note L&D Date/Time: 06/14/23 08:17 Neuro status: Neuro function grossly intact. Vital Signs: Last Vital Signs Temp 36.9 C 06/14/23 00:00 Pulse 54 L 06/14/23 00:00 Resp 20 06/14/23 00:00 BP 119/76 06/14/23 04:45 Pulse Ox 20 L 06/14/23 00:00 O2 Del Method Room Air 06/13/23 05:20 Pain score (VAS): 0 I/O: Intake & Output 06/13/23 06/14/23 06/14/23 23:59 07:59 15:59 Intake Total 1000 Output Total 150 1200 Balance -150 -200 Patient feedback: Upon assessment this morning, patient reports full motor/sensation returned to BLEs. No parasthesias/numbness noted. Earlier nursing note stated anesthesia was notified for assessment 12 hours post epidural due to patient complaints of remaining right quadricep weakness, however, epidural had been turned off less than 9 hours at the time anesthesia was notified. Patient was slowly regaining appropriate strength at this time, and therefore able to be safely evaluated fully in the morning. Patient was able to shower self and reports no concerns at 0730, and is satisfied with anesthetic care.
[2023-06-14] MEDS: LABETALOL HCL 100 MG TABLET 200 MG PO ×2 (09:16→21:30)
[2023-06-14] MEDS: DOCUSATE SODIUM 100 MG CAPSULE PO ×2 (09:16→16:36)
[2023-06-14] MEDS: CITALOPRAM HYDROBROMIDE 20 MG TABLET 40 MG PO (09:17)
[2023-06-14] MEDS: MULTIVIT/MIN/PREN/FOL AC/IRON TABLET 1 TAB PO (09:17)
[2023-06-14] MEDS: HYDROCORTISONE 2.5% CREAM 30 GM TUBE 1 APPLIC TOPICAL ×2 (09:18→21:30)
--- NOTE | 2023-06-14 09:46 | PC.NURSE ---
[id number] Introductions were made, then consulted with patient to assess needs related to . Mother has independently latched to the left breast using the cradle position. has a nice rounded cheek line, body close to mothers body, good rocking jaw motion and demonstrates swallowing. Mother denies pain with the latch. Discussed with mother her?plans to feed?her and the?experience so far. Resources provided for inpatient and outpatient services with the feeding sheet, mom/baby guide and name written on the communication board. Mother voiced understanding of information and will call if there is a request for assistance. Reported to the Primary RN.
[2023-06-15 08:00] VITALS: PULSE 69; RESP 18; O2SAT 97
[2023-06-15 08:05] VITALS: BP 123/74; PULSE 69; RESP 18; TEMP 36.6; O2SAT 97
--- NOTE | 2023-06-15 09:09 | PM.OBPNVD ---
OB - PN: Subj Subjective Date/time seen: 06/14/23 09:00 Interval history: No headache scotomata or RUQ pain. Patient comments: pain well controlled, tolerating diet and other (Decreasing lochia.) baby status: doing well and nursing well OB - PN: Obj Data Labs 06/14/23 03:52 06/13/23 05:09 OB - PN A/P Plan day: 1 Plan: routine care Comments: Patient doing well. Time Spent With Patient Time: Total time spent is greater than 50% in coordination of care (as documented) at patient's floor/unit and/or counseling patient: Exam Psych: Affect: normal affect Other: Abd: fundus firm below umbilicus, nontender Perineum: healing Ext: nontender
--- NOTE | 2023-06-15 09:09 | PM.OBPNVD ---
OB - PN: Subj Subjective Date/time seen: 06/15/23 09:09 Patient comments: pain well controlled, tolerating diet and other (Decreasing lochia.) baby status: doing well and nursing well OB - PN: Obj Data Labs 06/14/23 03:52 06/13/23 05:09 OB - PN A/P Plan day: 2 Plan: discharge home and other Comments: Patient doing well. Follow up 4-6 weeks. Discharge instructions provided. Time Spent With Patient Time: Total time spent is greater than 50% in coordination of care (as documented) at patient's floor/unit and/or counseling patient: Time with patient: less than 15 minutes Exam Psych: Affect: normal affect Other: Abd: fundus firm below umbilicus, nontender Perineum: healing Ext: nontender
[2023-06-15] MEDS: TETANUS,DIPHTHERIA,AC PERTUSSIS ADULT (0.5 ML) BOOSTRIX IM (10:41)
[2023-06-15 10:44] VITALS: PULSE 76
[2023-06-15] MEDS: LABETALOL HCL 100 MG TABLET 200 MG PO (10:44)
[2023-06-15] MEDS: DOCUSATE SODIUM 100 MG CAPSULE PO (10:46)
[2023-06-15] MEDS: CITALOPRAM HYDROBROMIDE 20 MG TABLET 40 MG PO (10:46)
[2023-06-15] MEDS: MULTIVIT/MIN/PREN/FOL AC/IRON TABLET 1 TAB PO (10:46)
[2023-06-15] MEDS: HYDROCORTISONE 2.5% CREAM 30 GM TUBE 1 APPLIC TOPICAL (10:48)
--- NOTE | 2023-06-15 13:57 | PC.NURSE ---
[id number] Purposefully rounded to assess for needs. Parents share that infant is fussier today and latches, then pulls off and cries. Parents are unsure if the is swallowing. Encouraged [id number] and calling for assistance at the next feeding. last was at the breast 0920 so, it was suggested to place upright on chest to watch for feeding cues. The other parent is holding infant with a pacifier in his mouth. demonstrates feeding cues, place at the breast, latches optimally, sucks 3 times and detaches and cries. We attempted this on both breast more than once. [id number] After mother demonstrating hand expression the drops of first milk were given to the late infant. chomps on RNs gloved finger and doesn't suckle. Infant is demonstrating feeding cues. Attempt made to latch infant, opens wide latches optimally, then mother states infant closes mouth on breast but doesn't suckle. Breast pump provided due to ineffective . Instructions given on cleaning, care, usage, that there should be no pain, pumping schedule for milk production, collection, and storage of human milk. Patient was assessed for correct placement, flange size, to pump for comfort and nipple stretching/stimulation for adequate milk production every 3 hours (8 times in 24 hours) 1-2 times at night. Mother voiced understanding of the education shared along with mom/baby guide and the pump measurement, flange fit handout for additional resource information. Reported to the Primary RN. 1205 -1230 Pumping session is complete. There's no first milk expressed. is inconsolable. Parent agree to supplement with paced bottle feeding. is able to bottle feed. Encouraged mother to hand express, gentle breast massage, and pump to protect the milk supply. Discussed expectation for a 47 yo that has made milk before and frequency of pumping frequently to build supply that we expect day 3-5. Mother encourage to call services if her milk is not to full volume by day 7. Reinforced understanding of milk production, transition of milk, signs of adequate intake, transition of stool, prevention/relief of engorgement, plugged ducts, mastitis, responsive watching for feeding cues, the different methods of stimulating to breastfeed 1-3 hours after the start of the last feeding, community resources, and when to call a provider using the resource of the feeding sheet along with the mom and baby guide. Parents voiced understanding of the information shared, is confident to continue effectively her infant at home, when to call for assistance, denies any additional assistance or education at this time. Reported to the Primary RN.
--- NOTE | 2023-06-15 14:07 | PC.NURSE ---
1035-Patient viewed the discharge video Mother & Baby Care, The First Two Weeks . Patient was given the opportunity and encouraged to ask questions. Patient verbalized understanding of information shared and has been given the mother/baby guide for home reference.
[2023-06-16 11:00] VITALS: BP 130/70; PULSE 74; RESP 18; O2SAT 100
--- NOTE | 2023-06-28 14:12 | PM.OBDSVD ---
DS: Admitting Diagnosis Discharge Date 06/15/23 Admitting Diagnosis Gestational hypertension DS: Discharge Diagnosis Discharge Diagnosis (1) Gestational hypertension: Code(s): O13.9 - Gestational [-induced] hypertension without significant proteinuria, unspecified trimester Status: Acute (2) Vaginal delivery: Code(s): O80 - Encounter for full-term uncomplicated delivery Status: Acute OB - DS: Summary Hospital Course Hospital Course: She was admitted for medical induction of labor. She had Pitocin. She had a uncomplicated vaginal delivery. She did well baby did well . No signs or symptoms of severe disease . She had adequate pain control was ambulating and was discharged to home on day 2. OB Procedures : NST, PIH Mgmt and Ultrasound OB Procedures Intrapartum: Spontaneous Vag Delivery OB Procedures: : None Peripartum Data Infant Delivery Method: Natural Vaginal Laceration Description: Perineal - 1st Degree Episiotomy description: None complications: none Status at Discharge Functional status at discharge: independent ambulation Time Spent with Patient Time attestation: Total time spent providing and/or coordinating discharge services: Exam Const: General: cooperative Orientation/consciousness: oriented to person, oriented to place and oriented to time HENMT: Face/Nose/Sinus: Normal external nose present Eyes: General: appearance normal, both eyes and all related structures Resp: Effort & Inspection: normal respiratory effort GI: Inspection: normal to inspection Skin: General skin exam: normal color Neuro: General: oriented to person, oriented to place and oriented to time Extrem: General: normal to inspection and no calf tenderness Psych: Appearance: grossly normal Mental Status: mental status grossly normal Discharge Plan Discharge Attending physician on discharge: Gio Yo Consulting providers: Linn Pope; Raya Sharpe Discharging Clinician: Gio Yo Anticipated Discharge Date/Time: 06/15/23 09:05 Patient Disposition: Home, Self-Care Activity: may shower, no straining and pelvic rest Diet: regular Discharge Instructions: Education: Mom and Baby Guide Given to: Mother Follow-Up: Call your delivering provider's office for an appointment to be seen in: 1 Week Mom and baby should come [facility] for the follow-up appointment. Appointment Date/Time: Friday, June 16, 2023 at 10:00 am What to expect at your follow-up visit: Blood Pressure Check Physical Assessment Call [phone] if you are unable to keep your appointment time. BREAST CARE: * Wear a snug supportive bra. * For engorgement discomfort: Breast Feeding: * Apply warm moist washcloths * Express milk as needed to relieve engorgement * Wear loose clothing Bottle Feeding: * May apply ice packs * For sore nipples: * Identify correct latch-on * Apply warm moist washcloths before and after nursing * Air dry nipples after nursing * May apply Lansinoh cream to nipples EPISIOTOMY/PERINEAL CARE: * Until bleeding stops, use your kendra bottle after urinating * Change your pad frequently throughout the day * You may take sitz baths several times a day (fill your bathtub with warm water and soak for 20 minutes.) Do NOT bathe in the water * No tub baths until seen by your physician - You may shower ACTIVITY: * Rest as much as possible. * Do not exercise or lift anything heavier than your baby (such as laundry or other children.) * Avoid stairs or driving as much as possible. * Do not put anything into the vagina. No douching, tampons, or sexual activity until seen by physician. NOTIFY PHYSICIAN IF YOU HAVE ANY QUESTIONS OR IF ANY OF THE FOLLOWING SYMPTOMS OCCUR:
== END 2023-06-15 13:35 | disposition home or self-care (01) | DRG 807 ==
LOC: ANHLDR 05:02 → ANHOB2 20:46
PROVIDERS: Admitting Provider Obstetrics & Gynecology; Visit Provider Obstetrics & Gynecology
DX: O13.4 Gestational [pregnancy-induced] hypertension without significant proteinuria, complicating childbirth (principal); Z37.0 Single live birth; O70.0 First degree perineal laceration during delivery; O99.344 Other mental disorders complicating childbirth; F41.9 Anxiety disorder, unspecified; O76 Abnormality in fetal heart rate and rhythm complicating labor and delivery; O69.81X0 Labor and delivery complicated by cord around neck, without compression, not applicable or unspecified; Z3A.37 37 weeks gestation of pregnancy
CPT/HCPCS: 36415; 80053; 84550; 85014; 85018; 85025; 86592; 86850; 86900; 86901; 90715; A9270; J2590; J2795; J7120

== ENCOUNTER 2024-03-25 01:32 | Day surgery (SDC) | payer OTHER, SELFPAY ==
[2024-03-13 09:22] VITALS: BMI 32.1
[2024-03-25 12:44] VITALS: BP 135/87; PULSE 88; RESP 20; TEMP 35.8; O2SAT 99; BMI 32.8
[2024-03-25 12:49] LABS: BEDSIDEPREGUCG Negative (Negative)
--- NOTE | 2024-03-25 12:51 | WPDANESEPPF ---
Anes - Initial Pre Proc Eval Procedure: Operation Date: 03/25/24 14:00 Proposed Procedures p Colonoscopy - Darnell Ardon MD Date/Time: 03/25/24 12:51 Surgeon: Darnell Ardon MD Pre Op Diagnosis: neoplasm screening Patient Data Age: 48 Gender: F Height: 1.55 m Weight: 78.9 kg Last Vital Signs Temp 35.8 C L 03/25/24 12:44 Pulse 88 03/25/24 12:44 Resp 20 03/25/24 12:44 BP 135/87 03/25/24 12:44 Pulse Ox 99 03/25/24 12:44 O2 Del Method Room Air 03/25/24 12:44 Allergies Allergy/AdvReac Type Severity Reaction Status Date / Time No Known Allergies Allergy Verified 03/25/24 12:43 Home Medications ?Medication ?Instructions ?Recorded ?Confirmed ?Type citalopram 40 mg tablet 40 mg PO DAILY 12/05/22 03/25/24 History sumatriptan succinate 100 mg See Rx Instructions PO .COMPLEX 11/14/23 03/25/24 History tablet (Imitrex) Laboratory Tests 03/25/24 12:46 POC Urine HCG, Qual Negative (Negative) Patient hx anesthesia problems: none Family hx anesthesia problems: none Results Review: All pre-operative results and documents have been reviewed as part of the pre-operative evaluation. [facility] Past Medical History Medical History PIH ( induced hypertension) Encounter for related examination in second trimester Migraine resulting from in-vitro fertilization Surgical History Surgical History [place] teeth extracted Family History Family History Father Asthma Hypertension Heart disease Mother Heart disease Sibling Alcoholism Hypertension Grandparent Stomach cancer Cerebrovascular accident Grandparent Lung cancer Social History Social History Smoking status: Never smoker Second hand tobacco smoke exposure: No Alcohol intake: never Substance use: never Substance use type: does not use Do You Feel Safe in your Home?: Yes Lack of Transportation: No Lack of Food: Never True Current Housing: I Have Housing Concerned About Future Housing: No Difficulty Paying Gas/Electric Bills: No Difficulty Paying for Meds: No Currently Unemployed: No Education: Bachelor's Degree Difficulty w/ Childcare or Family Care: No Living arrangements: with family Additional living arrangements comments: Occupation/Education: occupation 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 [employer] Gender identity (if verbalized by the patient): Female Sexual Orientation (if Verbalized by the Patient): Lesbian, Lombardo, or Homosexual Spiritual care concerns: No Anes - Eval Final PreProcedure Day of Procedure 03/25/24 12:51 Patient weight: obese Heart: regular rate and rhythm Lungs: clear to auscultation Airway: Mallampati scale class II Neurological: alert and oriented Last oral intake: >/= 8 hours ASA classification: II Emergent: no Anesthetic plan: proceed Anesthesia type and monitoring: general GIVS and standard monitoring Results Review: All pre-operative results and documents have been reviewed as part of the pre-operative evaluation. Informed Consent: The patient's anesthetic plan and its attendant risks and benefits were discussed with the patient/family/POA. Questions were solicited and answers provided to the satisfaction of the patient/family/POA.
[2024-03-25] MEDS: LACTATED RINGERS 1,000 ML 150 ML IV CONT (12:53)
--- NOTE | 2024-03-25 12:53 | PM.HPGS ---
History of Present Illness History of Present Illness Consent: Risks, benefits, and alternatives have been discussed and questions answered. Patient agrees to proceed with procedure. Chief complaint: neoplasm screening Narrative: Susie Rea is a 48 year old female here for first screening colonoscopy Review of Systems Review of Systems: All systems reviewed & are unremarkable except as noted in HPI and below PMFSH Past Medical History Medical History (Updated 03/25/24 @ 12:54 by Darnell Ardon MD) Colon cancer screening PIH ( induced hypertension) Encounter for related examination in second trimester Migraine resulting from in-vitro fertilization Surgical History Surgical History [place] teeth extracted Family History Family History Father Asthma Hypertension Heart disease Mother Heart disease Sibling Alcoholism Hypertension Grandparent Stomach cancer Cerebrovascular accident Grandparent Lung cancer Social History Social History Smoking status: Never smoker Second hand tobacco smoke exposure: No Alcohol intake: never Substance use: never Substance use type: does not use Do You Feel Safe in your Home?: Yes Lack of Transportation: No Lack of Food: Never True Current Housing: I Have Housing Concerned About Future Housing: No Difficulty Paying Gas/Electric Bills: No Difficulty Paying for Meds: No Currently Unemployed: No Education: Bachelor's Degree Difficulty w/ Childcare or Family Care: No Living arrangements: with family Additional living arrangements comments: Occupation/Education: occupation 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 Gender identity (if verbalized by the patient): Female Sexual Orientation (if Verbalized by the Patient): Lesbian, Lombardo, or Homosexual Spiritual care concerns: No Meds Home Medications and Allergies Home Medications ?Medication ?Instructions ?Recorded ?Confirmed ?Type citalopram 40 mg tablet 40 mg PO DAILY 12/05/22 03/25/24 History sumatriptan succinate 100 mg See Rx Instructions PO .COMPLEX 11/14/23 03/25/24 History tablet (Imitrex) Allergies Allergy/AdvReac Type Severity Reaction Status Date / Time No Known Allergies Allergy Verified 03/25/24 12:43 Vital Signs Vital Signs - 24 hr 03/25/24 12:44 Temperature 96.5 F L Pulse Rate 88 Respiratory Rate 20 Blood Pressure 135/87 Pulse Oximetry 99 Oxygen Delivery Room Air Exam Const: General: comfortable and no acute distress HENMT: Face/Nose/Sinus: Normal nares present Eyes: General: appearance normal, both eyes and all related structures Neck: Neck: no JVD Resp: Auscultation: clear to auscultation bilaterally Cardio: Rate: regular rate Rhythm: regular rhythm GI: Inspection: non-distended GI Palp: Yes Soft to palpation Skin: General skin exam: normal color Neuro: General: gait normal Speech: normal speech Extrem: General: normal to inspection Psych: Mental Status: mental status grossly normal Assessment and Plan Assessment and plan (1) Colon cancer screening: Code(s): Z12.11 - Encounter for screening for malignant neoplasm of colon Status: Acute Assessment and Plan: colonoscopy
[2024-03-25 13:17] VITALS: BP 110/64; PULSE 71; RESP 20; O2SAT 98
[2024-03-25 13:27] VITALS: BP 107/68; PULSE 60; RESP 21; O2SAT 100
[2024-03-25 13:37] VITALS: BP 122/77; PULSE 62; RESP 20; O2SAT 100
== END 2024-03-25 13:47 | disposition home or self-care (01) ==
PROVIDERS: Anesthesiology; PCP Family Medicine; Visit Provider Internal Medicine Gastroenterology
PROC: 0DJD8ZZ Inspection of Lower Intestinal Tract, Via Natural or Artificial Opening Endoscopic (ICD-10-PCS; CPT 45378; principal; 2024-03-25 14:00)
DX: Z12.11 Encounter for screening for malignant neoplasm of colon (principal); D12.2 Benign neoplasm of ascending colon; K63.5 Polyp of colon; E66.9 Obesity, unspecified; Z68.32 Body mass index [BMI] 32.0-32.9, adult; Z98.890 Other specified postprocedural states; Z80.1 Family history of malignant neoplasm of trachea, bronchus and lung; Z80.0 Family history of malignant neoplasm of digestive organs; Z82.49 Family history of ischemic heart disease and other diseases of the circulatory system
CPT/HCPCS: 45385; 88305; J2003; J2704; J7120

== ENCOUNTER 2024-07-19 20:57 | Emergency (ER) | payer OTHER, SELFPAY ==
--- OUTSIDE RECORDS SUMMARY | 2024-07-19 20:59 | XMS_ITS | Referral Summary ---
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 Name Role Phone Enzo Ling MD Primary Care Provider [phone] Encounters Date Type Department Care Team Description 06/28/2024 5:45 PM CDT Office Visit [facility] at [address] [id number] Rashmi Lion NP Other migraine without status migrainosus, intractable (Primary Dx) from Last 3 Months Allergies No known active allergies Medications citalopram (CeleXA) 40 mg tablet Take 1 tablet (40 mg total) by mouth daily 90 tablet 3 11/02/2023 11/02/19 Active SUMAtriptan (IMITREX) 100 mg tablet Take 1 tablet (100 mg total) by mouth once as needed for migraine for up to 36 doses 9 tablet 3 06/06/2024 Active Hospital, Clinic, or Other Facility Administered Medication Ordered Dose Route Frequency Start Date End Date Status ketorolac (TORADOL) 60 mg/2 mL intramuscular injection 30 mgIndications:Other migraine without status migrainosus, intractable 30 mg IM Once 06/28/2024 06/28/2024 Ended Active Problems Problem Noted Date Diagnosed Date Encounter for medical examination to establish c are 11/04/2023 Assessment & Plan (11/04/2023 12:40 PM CDT): A(n) initial well visit to establish care has been performed today. Susie Rea is not up to date on screening tests. She is in need of Breast cancer screening, hep B, Colon cancer screening, and Cholesterol screening. She is not up to date on needed preventative vaccinations; She is in need of Influenza. We discussed healthy lifestyle habits, educational material has been given. Medications reviewed, changes documented as per the medical record and discussed with patient along with risks vs benefits. Specific topics reviewed: drugs, ETOH, and tobacco, importance of regular dental care, importance of regular exercise, importance of varied diet, limit TV, media violence, minimize junk food, and seat belts. 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 Migraine without aura and wi thout status migrainosus, not intractable 07/27/2015 Immunizations Immunization Administration Dates Next Due Influenza, Quadrivalent, Spl it, Preservative Free, Intramuscular 11/19/2014 Influenza, Trivalent, IM (MDV) 01/12/2014 Influenza, Unspecified 02/01/2024(Deferr ed: Patient Refused),10/10/2022(Deferred: Patient Refused) Td, adsorbed 07/10/2005 Tdap 06/15/2023,07/27/2015 Social History Tobacco Use Types Packs/Day Years Used Date Smoking Tobacco: Never Cigarettes Smokeless Tobacco: Never Tobacco Cessation:Counseling Given: Not Answered AUDIT-C Answer Date Recorded Q1: How often do you have a drink containing alcohol? Never 11/02/2023 Q2: How many drinks containi ng alcohol do you have on a typical day when you are drinking? Patient does not drink Q3: How often do you have si x or more drinks on one occasion? Never 11/02/2023 PHQ-2 Answer Date Recorded PHQ-2 Total Score (If total score is 3 or more points, staff should administer the PHQ-9) 0 02/01/2024 Comments No Sex and Gender Information Value Date Recorded Sex Assigned at Not on file Legal Sex Female 1:36 PM CDT Gender Identity Not on file Sexual Orientation Not on file Last Filed Vital Signs Vital Sign Reading Time Taken Comments Blood Pressure 143/88 06/28/2024 5:29 PM CDT Pulse 62 06/28/2024 5:29 PM CDT Temperature 36.6 C (97.8 F) 06/28/2024 5:29 PM CDT Respiratory Rate 18 06/28/2024 5:29 PM CDT Oxygen Saturation 100% 06/28/2024 5:29 PM CDT Inhaled Oxygen Concentration - - Weight 81.2 kg (179 lb) 06/28/2024 5:29 PM CDT Height 154.9 cm (5' 1 ) 06/28/2024 5:29 PM CDT Body Mass Index 33.82 06/28/2024 5:29 PM CDT Plan of Treatment Not on file Procedures Procedure Name Priority Date/Time Associated Diagnosis Comments COLONOSCOPY Routine 03/25/2024 7:38 AM KILN PULLER HEPATITIS C ANTIBODY Routine 11/02/2023 11:08 AM CDT Need for hepatitis C screening test from Last 3 Months or Most Recently Relevant to Health Maintenance Results * (ABNORMAL) COLONOSCOPY (03/25/2024 7:38 AM KILN PULLER) Scribed Colonoscopy Abnormal Darnell Tesfaye MD HEALTH MAINTENANCE Final Result * Hepatitis C antibody Blood (11/02/2023 11:08 AM CDT) Hep C Ab Nonreactive Nonreactive Comment: Interpretive Data Nonreactive: Antibodies to HCV not detected. Does NOT exclude the possibility of recent exposure to HCV. Equivocal: Equivocal for HCV antibodies. Supplemental molecular testing will be automatically performed to determine infection status in accordance with current CDC screening recommendations. Reactive: Positive for HCV antibodies. This may represent current or past HCV infection. Supplemental molecular testing will be automatically performed to determine current infection status in accordance with current CDC screening recommendations. Interpretive data was last revised on 2019. Blood 11/02/2023 11:0 8 AM CDT 11/02/2023 4:48 PM CDT Enzo Ling MD LAB MICROBIOLOGY - GENERAL ORDERABLES Final Result Performing Organization Address City/State/ZIP [facility] Phone Number [phone] [address] Department [place] [address] from Last 3 Months or Most Recently Relevant to Health Maintenance Insurance [employer] OPEN ACCESS Care Teams Fourth Grade Teacher Relationship Specialty Start Date End Date Enzo Ling MD [address] [address] PCP - General Family Medicine 11/02/23
--- OUTSIDE RECORDS SUMMARY | 2024-07-19 20:59 | XMS_ITS | Encounter Summary ---
Author Organization [facility] Address [address] [facility] [place] [address] Phone Care Team Providers Care Aerographer Name Role Phone Jayda Ross MD Primary Care Provider Un available Krystle Philippe PARTY PLAN SALES UNIT SALES LEADER, CORPORATE MEETING PLANNER Unavailable Paty Albarado PARTY PLAN SALES UNIT SALES LEADER, CORPORATE MEETING PLANNER Primary Care Provi jonah Franca White MD Primary Care Provide r Reason for Visit * Reason Comments Medication Refill Encounter Details Date Type Department Care Team (Late st Contact Info) Description 03/02/2022 Refill [facility] - Family Medicine - Normal [address] [facility] [address] [place], [place] [id number] Paty Albarado APRN, CORPORATE MEETING PLANNER [address] [facility] [address] [place] [address] Medication Refill Social History Tobacco Use Types Packs/Day Years Used Date Smoking Tobacco: Never Smokeless Tobacco: Never Alcohol Use Standard Drinks/Week Comments Not Currently 0 (1 standard drink = 0.6 oz pur e alcohol) occassionally PHQ-2 Answer Date Recorded Total Score - Questions 1-9 0 08/11 Education Answer Date Recorded What is the highest level of school you have completed or the highest degree you have received? 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 No / Unsure 02/07/2022 8:30 AM CHUTE FEEDER documented as of this encounter Miscellaneous Notes * Telephone Encounter - Jsos Chowdhury APRN, CNP - 03/07/2022 6:02 PM CST (I am covering for Ptay Albarado APN who is away from the office today.) Approved. E FEEDER * Telephone Encounter - Stormy Amato RN - 03/07/2022 9:38 AM CST Medication failed the protocol, provider to review and approve the medication order if appropriate. Requested Prescriptions Pending Prescriptions Disp Refills citalopram (CeleXA) 40 MG Tablet [Pharmacy Med Name: CITALOPRAM HBR 40 MG TABLET] 90 Tablet 0 Sig: TAKE 1 TABLET BY MOUTH EVERY DAY Citalopram (Celexa) (6 Month Refill Only) Protocol Failed - 03/02/2022 12:22 AM Failed - Has an encounter in the past 6 months with a depression, anxiety, adjustment disorder, OCD, or PTSD visit diagnosis Passed - No test in the past 12 months or most recent test was negative Passed - No active on record Passed - Citalopram dose is less than or equal to 40mg / day Passed - Visit with relevant provider in past 6 months or upcoming 90 days Recent Visits Date Type Provider Dept 01/02/22 Office Visit Paty Albarado APRN, CNP [facility] [place] Showing recent visits within past 182 days and meeting all other requirements Future Appointments Date Type Provider Dept 04/04/22 Appointment Paty Albarado APRN, CORPORATE MEETING PLANNER [facility] [place] Showing future appointments within next 90 days and meeting all other requirements Passed - Patient has established therapy with Citalopram for at least 6 months E FEEDER documented in this encounter Plan of Treatment Not on file documented as of this encounter Visit Diagnoses Diagnosis Anxiety Anxiety state, unspecified Adjustment disorder with mixed disturbance of emotions and conduct documented in this encounter Additional Health Concerns Assessment Noted Time PHQ-9 Depression Total Score: 0 09/02/19 22 9:00 AM CDT documented as of this encounter Care Teams Aerographer Relationship Specialty Start Date End Date Jayda Ross MD PCP - General Family Medicine 07/23/15 04/03/22 Paty Albarado APRN, CORPORATE MEETING PLANNER [address] [place] [address] PCP - General Advanced Practice Nurse 04/04/2202/04 Franca White MD [address] [place] [address] PCP - General 02/06/24 Krystle Philippe APRN, CORPORATE MEETING PLANNER [address] [place] [address] Certified Nurse Practitioner 09/28/17 09/02/23 documented as of this encounter
--- OUTSIDE RECORDS SUMMARY | 2024-07-19 20:59 | XMS_ITS | Encounter Summary ---
Author Organization [facility] Address [address] [facility] [place] [address] Phone Care Team Providers Care Network Support Engineer Name Role Phone Jayda Ross MD Primary Care Provider Un available Krystle Philippe MIDDLE SCHOOL FOOTBALL COACH, WEB WORKER Unavailable Paty Albarado MIDDLE SCHOOL FOOTBALL COACH, WEB WORKER Primary Care Provi jonah Franca White MD Primary Care Provide r Reason for Visit * Reason Comments Medication Refill Encounter Details Date Type Department Care Team (Late st Contact Info) Description 06/04/2020 Refill [facility] - Family Medicine - Normal [address] [facility] [address] [place] [address] Jayda Ross MD Medication Refill Social History Tobacco Use Types Packs/Day Years Used Date Smoking Tobacco: Never Smokeless Tobacco: Never Alcohol Use Standard Drinks/Week Comments Yes 0 (1 standard drink = 0.6 oz pur e alcohol) occassionally PHQ-2 Answer Date Recorded PHQ-2 Score 0 11/13/2018 Comments No Sex and Gender Information Value Date Recorded Sex Assigned at Not on file Legal Sex Female 3:07 AM CHANNEL WORKER Gender Identity Not on file Sexual Orientation Not on file 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 ANDERSON - 04/21/19 Routing to [facility] to please schedule annual physical/med check OV. Thanks! Requested Prescriptions Pending Prescriptions Disp Refills citalopram (CeleXA) 40 MG Tablet [Pharmacy Med Name: CITALOPRAM HBR 40 MG TABLET] 30 Tablet 0 Sig: TAKE 1 TABLET BY MOUTH EVERY DAY Not Delegated - Psychiatry: Antidepressants Failed - 06/04/2020 12:54 AM Failed - Valid encounter within last 12 months Past Office Visits Recent Outpatient Visits 1 year ago Well woman exam (no gynecological exam) [facility] Jayda Ross MD 2 years ago Adjustment disorder with mixed disturbance of emotions and conduct [facility] Jayda Ross MD 2 years ago Adjustment disorder with mixed disturbance of emotions and conduct [facility] Jayda Ross MD 2 years ago Adjustment disorder with mixed disturbance of emotions and conduct [facility] Jayda Ross MD 3 years ago Acute nonintractable headache, unspecified headache type [facility] Alia Alcaraz, ASSISTANT WINEMAKER, WEB WORKER Upcoming Appointments LOOM OPERATOR - Recent and Past Visits Recent Visits Date Type Provider Dept 04/21/19 Office Visit Jayda Ross MD [facility] [place] Showing recent visits within past 460 days with a meds authorizing provider and meeting all other requirements Future Appointments No visits were found meeting these conditions. Showing future appointments within next 90 days with a meds authorizing provider and meeting all other requirements Failed - This refill cannot be delegated documented in this encounter Plan of Treatment Not on file documented as of this encounter Visit Diagnoses Diagnosis Anxiety Anxiety state, unspecified Adjustment disorder with mixed disturbance of emotions and conduct documented in this encounter Additional Health Concerns Assessment Noted Time PHQ-9 Depression Total Score: 0 04/22/19 19 3:00 PM CHANNEL WORKER documented as of this encounter Care Teams Network Support Engineer Relationship Specialty Start Date End Date Jayda Ross MD PCP - General Family Medicine 07/23/15 04/03/22 Paty Albarado APRN, WEB WORKER [address] [facility] [address] [place] [address] PCP - General Advanced Practice Nurse 04/04/2202/04 Franca White MD [address] [facility] [address] [place] [address] PCP - General 02/06/24 Krystle Philippe APRN, WEB WORKER [address] [place] [address] Certified Nurse Practitioner 09/28/17 09/02/23 documented as of this encounter
--- OUTSIDE RECORDS SUMMARY | 2024-07-19 20:59 | XMS_ITS | Encounter Summary ---
Author Organization [facility] Address [address] [facility] [address] Phone Care Team Providers Care Agriscience Technology Instructor Name Role Phone Krystle Philippe APRN, ALISE Unavailable Paty Albarado APRN, TELETYPEWRITER OPERATOR Primary Care Provi jonah Franca White MD Primary Care Provide r Reason for Visit * Reason Comments Medication Refill Encounter Details Date Type Department Care Team (Late st Contact Info) Description 03/24/2023 Refill [facility] - Family Medicine - Normal [address] [facility] [address] [place], [place] [id number] Paty Albarado APRN, TELETYPEWRITER OPERATOR [address] [facility] [address] [place] [address] Medication Refill Social History Tobacco Use Types [...] on file Legal Sex Female 3:07 AM THRASHER FEEDER Gender Identity Not on file Sexual Orientation Not on file Occupation Industry Job Start Date Job End Date [employer] Not on file Not on file Not on file documented as of this encounter Miscellaneous Notes * Telephone Encounter - Kacy Banegas RN - 03/26/2023 3:47 PM THRASHER FEEDER Medication failed the protocol, provider to review and approve the medication order if appropriate. Requested Prescriptions Pending Prescriptions Disp Refills citalopram (CeleXA) 40 MG Tablet [Pharmacy Med Name: CITALOPRAM HBR 40 MG TABLET] 90 Tablet 0 Sig: TAKE 1 TABLET BY MOUTH EVERY DAY Citalopram (Celexa) (6 Month Refill Only) Protocol Failed - 03/24/2023 7:09 AM Failed - Visit with relevant provider in past 6 months or upcoming 90 days Recent Visits No visits were found meeting these conditions. Showing recent visits within past 182 days and meeting all other requirements Future Appointments No visits were found meeting these conditions. Showing future appointments within next 90 days and meeting all other requirements Failed - Has an encounter in the past 6 months with a depression, anxiety, adjustment disorder, OCD, or PTSD visit diagnosis Passed - No test in the past 12 months or most recent test was negative Passed - No active on record Passed - Citalopram dose is less than or equal to 40mg / day Passed - Patient has established therapy with Citalopram for at least 6 months SHER FEEDER documented in this encounter Plan of Treatment Not on file documented as of this encounter Visit Diagnoses Diagnosis Anxiety Anxiety state, unspecified Adjustment disorder with mixed disturbance of emotions and conduct documented in this encounter Additional Health Concerns Assessment Noted Time PHQ-9 Depression Total Score: 0 09/02/19 22 9:00 AM CDT documented as of this encounter Care Teams Agriscience Technology Instructor Relationship Specialty Start Date End Date Paty Albarado APRN, TELETYPEWRITER OPERATOR [address] [facility] [address] [place] [address] PCP - General Advanced Practice Nurse 04/04/2202/04 Franca White MD [address] [address] PCP - General 02/06/24 Krystle Philippe, BUSINESS CONTROLLER, TELETYPEWRITER OPERATOR [address] [place] [address] Certified Nurse Practitioner 09/28/17 09/02/23 documented as of this encounter
--- OUTSIDE RECORDS SUMMARY | 2024-07-19 20:59 | XMS_ITS | Encounter Summary ---
Author Organization [facility] Address [address] [facility] [place] [address] Phone Care Team Providers Care Military Equipment Specialist Name Role Phone Jayda Ross MD Primary Care Provider Un available Krystle Philippe BAGGER MEAT, REPAIR DEPARTMENT MANAGER Unavailable Paty lAbarado BAGGER MEAT, REPAIR DEPARTMENT MANAGER Primary Care Provi jonah Franca White MD Primary Care Provide r Reason for Visit * Reason Comments Medication Refill Encounter Details Date Type Department Care Team (Late st Contact Info) Description 05/09/2020 Refill [facility] - Family Medicine - Normal [address] [facility] [address] [place] [address] Jayda Ross MD Medication Refill Social History [...] on file Legal Sex Female 3:07 AM LIVING SUPERVISOR Gender Identity Not on file Sexual Orientation Not on file 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 Ross. Sent [employer] message. NG SUPERVISOR * Telephone Encounter - Maxime Guadalupe - 05/11/2020 10:07 AM CST Routing to [facility] to please schedule annual well woman OV. Thanks! NG SUPERVISOR * Telephone Encounter - Maxime Guadalupe - 05/11/2020 10:06 AM CST Medication failed the protocol, provider to review and approve the medication order if appropriate. Medication pended and routed to [facility] to sched annual well woman OV. Requested Prescriptions Pending Prescriptions Disp Refills SUMAtriptan (IMITREX) 100 MG Tablet [Pharmacy Med Name: SUMATRIPTAN SUCC 100 MG TABLET] 9 Tablet 0 Sig: TAKE 1 TAB BY MOUTH DAILY NEEDED FOR MIGRAINE. USE DIRECTED. MAY REPEAT DOSE IN 2 HOURS IF HEADACHE RECURS. Neurology: Migraine Therapy Failed - 05/09/2020 8:25 AM Failed - Valid encounter within last 12 months Past Office Visits Recent Outpatient Visits 1 year ago Well woman exam (no gynecological exam) [facility] Normal Jayda Ross MD 2 years ago Adjustment disorder with mixed disturbance of emotions and conduct [facility] Normal Jayda Ross MD 2 years ago Adjustment disorder with mixed disturbance of emotions and conduct [facility] Jayda Ross MD 2 years ago Adjustment disorder with mixed disturbance of emotions and conduct [facility] Jayda Ross MD 3 years ago Acute nonintractable headache, unspecified headache type [facility] Alia Alcaraz, DUTY OFFICER, REPAIR DEPARTMENT MANAGER Upcoming Appointments ICT TRAINER - Recent and Past Visits Recent Visits Date Type Provider Dept 04/21/19 Office Visit Jayda Ross MD [facility] [place] Showing recent visits within past 460 days with a meds authorizing provider and meeting all other requirements Future Appointments No visits were found meeting these conditions. Showing future appointments within next 90 days with a meds authorizing provider and meeting all other requirements NG SUPERVISOR documented in this encounter Plan of Treatment Not on file documented as of this encounter Visit Diagnoses Diagnosis Migraine without aura and without status migrainosus, not intractable Migraine without aura, without mention of intractable migraine without mention of status migrainosus documented in this encounter Additional Health Concerns Assessment Noted Time PHQ-9 Depression Total Score: 0 04/22/19 19 3:00 PM LIVING SUPERVISOR documented as of this encounter Care Teams Military Equipment Specialist Relationship Specialty Start Date End Date Jayda Ross MD PCP - General Family Medicine 07/23/15 04/03/22 Paty Albarado APRN, REPAIR DEPARTMENT MANAGER [address] [facility] [address] [place] [address] PCP - General Advanced Practice Nurse 04/04/2202/04 Franca White MD [address] [facility] [address] [place] [address] PCP - General 02/06/24 Krystle Philippe APRN, REPAIR DEPARTMENT MANAGER [address] [place], [place] [address] Certified Nurse Practitioner 09/28/17 09/02/23 documented as of this encounter
--- OUTSIDE RECORDS SUMMARY | 2024-07-19 20:59 | XMS_ITS | Encounter Summary ---
Author Organization [facility] Address [address] [facility] [place] [address] Phone Care Team Providers Care Hose Wrapper Name Role Phone Jayda Ross MD Primary Care Provider Un available Krystle Philippe MEDICAL DOCTOR, COMMUTATOR ASSEMBLER Unavailable Paty Albarado MEDICAL DOCTOR, COMMUTATOR ASSEMBLER Primary Care Provi jonah Franca White MD Primary Care Provide r Reason for Visit * Reason Comments Medication Refill Celexa Encounter Details Date Type Department Care Team (Late st Contact Info) Description 12/10/2019 Refill [facility] - Family Medicine - Normal [address] [facility] [address] [place] [address] Jayda Ross MD Medication Refill (Celexa) Social History Tobacco Use Types Packs/Day Years Used Date Smoking Tobacco: Never Smokeless Tobacco: Never Alcohol Use Standard Drinks/Week Comments Yes 0 (1 standard drink = 0.6 oz pur e alcohol) occassionally PHQ-2 Answer Date Recorded PHQ-2 Score 0 11/13/2018 Comments No Sex and Gender Information Value Date Recorded Sex Assigned at Not on file Legal Sex Female 3:07 AM COMMUNITY SERVICE WORKER Gender Identity Not on file Sexual Orientation Not on file 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 No / Unsure 11/18/2019 9:54 AM CDT documented as of this encounter Miscellaneous Notes * Telephone Encounter - Meghna Aquino RN - 12/10/2019 4:11 PM CDT Not Delegated - Psychiatry: Antidepressants Failed LAST OFFICE VISIT: 04/21/2019 LAST REFILL:04/21/19 LAST LAB: na NEXT OFFICE VISIT: Visit date not found Order pended for your review. Thanks! Requested Prescriptions Pending Prescriptions Disp Refills ??? citalopram (CeleXA) 40 MG Tablet [Pharmacy Med Name: CITALOPRAM HBR 40 MG TABLET] 90 Tab 1 Sig: TAKE 1 TABLET BY MOUTH EVERY DAY I spoke with Adam Pharmacist at [facility] . Patient needs 90 day due to insurance . He states thatthe patient has picked up mediation form [facility] also. documented in this encounter Plan of Treatment Not on file documented as of this encounter Visit Diagnoses Diagnosis Anxiety Anxiety state, unspecified Adjustment disorder with mixed disturbance of emotions and conduct documented in this encounter Additional Health Concerns Assessment Noted Time PHQ-9 Depression Total Score: 0 04/22/19 19 3:00 PM COMMUNITY SERVICE WORKER documented as of this encounter Care Teams Hose Wrapper Relationship Specialty Start Date End Date Jayda Ross MD PCP - General Family Medicine 07/23/15 04/03/22 Paty Albarado APRN, COMMUTATOR ASSEMBLER [address] [facility] [address] [place] [address] PCP - General Advanced Practice Nurse 04/04/2202/04 Franca White MD [address] [facility] [address] [place] [address] PCP - General 02/06/24 Krystle Philippe APRN, COMMUTATOR ASSEMBLER [address] [facility] [place] [address] Certified Nurse Practitioner 09/28/17 09/02/23 documented as of this encounter
--- OUTSIDE RECORDS SUMMARY | 2024-07-19 20:59 | XMS_ITS | Clinical Summary ---
Author Organization [facility] [address] Address [address] [facility] 5th [place] [address] Care Team Providers Care Director Of Placement Name Role Phone Enzo Ling MD Primary Care Provider [phone] Allergies No known active allergies Medications citalopram [...] wi thout status migrainosus, not intractable 07/27/2015 Encounters Date Type Department Care Team Description 06/28/2024 5:45 PM CDT Office Visit [facility] at [address] [id number] Rashmi Lion NP Other migraine without status migrainosus, intractable (Primary Dx) from Last 3 Months Immunizations Immunization Administration Dates Next Due Influenza, Quadrivalent, Spl it, Preservative Free, Intramuscular 11/19/2014 Influenza, Trivalent, IM (MDV) 01/12/2014 Influenza, Unspecified 02/01/2024(Deferr ed: Patient Refused),10/10/2022(Deferred: Patient Refused) Td, adsorbed 07/10/2005 Tdap 06/15/2023,07/27/2015 Medical History Medical History Date Comments Anxiety 2000 Migraines 1989 Family History Medical History Relation Name Comments Allergy (severe) Father Norm Asthma Father Norm Heart disease Father Norm Hypertension Father Norm Stomach cancer Maternal Grandfather Mitral valve prolapse Mother Lung cancer Paternal Grandmother Alcohol abuse Sister Bogdan Allergy (severe) Sister Bogdan Hypertension Sister Bogdan Miscarriages / Stillbirths Sister Bogdan Diabetes Neg Hx Relation Name Status Comments Father Norm Alive Maternal Grandfather Maternal Grandmother Mother Alive Paternal Grandfather Paternal Grandmother Sister Bogdan Alive Social History Tobacco Use Types Packs/Day Years [...] on file Sexual Orientation Not on file Obstetrics History Last Filed Vital Signs Vital Sign Reading [...] 06/28/2024 5:29 PM CDT Plan of Treatment Health Maintenance Due Date Last Done Comments Breast Cancer Screening-Mammogram 05/01/2021 05/01/2020, 04/26/2019, 01/06/2017 Covid-19 Vaccine (2023-2 5 season) 2023 10/10/2020, 09/19/2020 Regular Well Visit/Exam 18-64 11/01/2024 11/02/2023 Influenza Vaccine (Season Ended) 2024 11/19/2014, 01/12/2014 Depression Screening 01/31/2025 02/01/2024, 11/02/2023 Cervical Cancer Screening 03/11/2025 Po stponed from 1976 (Patient declined, but will receive in the future) DTaP/Tdap/Td Vaccine (3 - Td or Tdap) 06/14/2033 06/15/2023, 07/27/2015, 07/10/2005 Colon Cancer Screening-Colonoscopy 03/25/2034 03/25/2024 Hepatitis B Screening Completed 11/02/2023 Hepatitis C Screening Completed 11/02/2023 Pneumococcal vaccine <65 Aged Out No longer eligible based on patient's age to complete this topic Procedures Procedure Name Priority Date/Time Associated Diagnosis Comments COLONOSCOPY Routine 03/25/2024 7:38 AM PATIENT CASE COORDINATOR HEPATITIS C ANTIBODY Routine 11/02/2023 11:08 AM CDT Need for hepatitis C screening test from Last 3 Months or Most Recently Relevant to Health Maintenance Results * (ABNORMAL) COLONOSCOPY (03/25/2024 7:38 AM PATIENT CASE COORDINATOR) Scribed Colonoscopy Abnormal Darnell Tesfaye MD HEALTH [...] LAB MICROBIOLOGY - GENERAL ORDERABLES Final Result TREV [id number] [place] [address] from Last 3 Months or Most Recently Relevant to Health Maintenance Insurance [employer] OPEN ACCESS Care Teams Director Of Placement Relationship Specialty Start Date End Date Enzo Ling MD [address] [facility] [address] [place] [address] PCP - General Family Medicine 11/02/23
--- OUTSIDE RECORDS SUMMARY | 2024-07-19 20:59 | XMS_ITS | Clinical Summary ---
Author Organization [facility] Address [address] [place] [address] Phone Care Team Providers Care Television Reporter Name Role Phone Unavailable Primary Care Provider Unavailabl e Allergies No known active allergies Medications vits15/iron/fo lic/dss ( VIT 24-GAWC-ICKMC- DSS ORAL) Take by mouth. Activ e folic acid (FOLVITE) 0.8 mg Tablet Take 1 mg by mouth daily. Active citalopram (CeleXA) 40 mg tablet Take 40 mg by mouth daily. Active CHOLECALCIFERO L, VITAMIN D3, ORAL Take by mouth. Activ e SUMAtriptan (IMITREX) 100 mg tablet Take 100 mg by mouth see administration instructions. may repeat in 2 hours; max dose 200mg in 24 hours Active Active Problems Problem Noted Date Diagnosed Date Anxiety state 12/27/2022 Multigravida of advanced maternal age in first t rimester 12/27/2022 resulting from in vitro fertilization in first trimester 12/27/2022 Supervision of high risk in first trim nancy 12/27/2022 Estimated Date of Delivery Comme nts Yes 07/04/2023 Encounters Date Type Department Care Team Description 05/28/2024 External Device Data ST[facility] ABSTRACTION Provider, Abstract 05/17/2024 External Device Data ST[facility] ABSTRACTION Provider, Abstract 05/16/2024 External Device Data [facility] ABSTRACTION Provider, Abstract 05/13/2024 External Device Data [facility] ABSTRACTION Provider, Abstract 04/29/2024 External Device Data ST[facility] ABSTRACTION Provider, Abstract from Last 3 Months Social History Tobacco Use Types Packs/Day Years Used Date Smoking Tobacco: Never Smokeless Tobacco: Never Tobacco Cessation:Counseling Given: Not Answered Alcohol Use Standard Drinks/Week Comments Not Currently 0 (1 standard drink = 0.6 oz pur e alcohol) Estimated Date of Delivery Comme nts Yes 07/04/2023 Sex and Gender Information Value Date Recorded Sex Assigned at Not on file Legal Sex Female 7:50 AM CDT Gender Identity Not on file Sexual Orientation Not on file Last Filed Vital Signs Vital Sign Reading Time Taken Comments Blood Pressure - - Pulse - - Temperature - - Respiratory Rate - - Oxygen Saturation - - Inhaled Oxygen Concentration - - Weight 80.7 kg (178 lb) 12/27/2022 8:48 AM CDT Height 154.9 cm (5' 1 ) 12/27/2022 8:48 AM CDT Body Mass Index 33.63 12/27/2022 8:48 AM CDT Plan of Treatment Health Maintenance Due Date Last Done Comments HEPATITIS B VACCINES (1 of 3 - 19+ 3-dose series) 07/29/1995 HPV/Cotest (21-29) 1997 CERVICAL CANCER SCREENING 2006 HPV/Cotest (30-65) 2006 PAP SMEAR 2006 BREAST CANCER SCREENING 05/01/2021 05/01/19 21, 04/26/2019, 01/06/2017 COLORECTAL SCREENING 2021 Colorectal Cancer Screening 2021 FIT-DNA Q 3 years 2021 FIT/FOBT Q 1 year 2021 Flex Sig/CT Colonography Q 5 years 2021 INFLUENZA VACCINE (#1) 2023 11/19/2014, 2013 COVID-19 Vaccine (2023- season) 11/11/202303/2020, 09/19/2020 DTAP/TDAP/TD VACCINES (2 - T d or Tdap) 07/26/2025 07/27/2015 RSV VACCINE (60+ or ) (1 - 1-dose 75+ series) 07/29/2051 Insurance [facility] OA PLUS
[2024-07-19 21:00] VITALS: BP 163/123; PULSE 81; RESP 18; TEMP 36.6; O2SAT 99
--- OUTSIDE RECORDS SUMMARY | 2024-07-19 21:00 | XMS_ITS | Encounter Summary ---
Author Organization [facility] Address [address] [place] [address] Phone Care Team Providers Care Granite Block Paver Name Role Phone Jayda Ross MD Primary Care Provider Un available Krystle Philippe ROSS LIFT OPERATOR, OFFAL ROLLER Unavailable Paty Albarado ROSS LIFT OPERATOR, OFFAL ROLLER Primary Care Provi jonah Franca White MD Primary Care Provide r Reason for Visit * Reason Comments Medication Refill Encounter Details Date Type Department Care Team (Late st Contact Info) Description 11/06/2020 Refill [facility] - Family Medicine - Normal [address] [facility] [address] [place], [place] [id number] Paty Albarado APRN, OFFAL ROLLER [address] [facility] [address] [place] [address] Medication Refill Social History Tobacco Use Types Packs/Day Years Used Date Smoking Tobacco: Never Smokeless Tobacco: Never Alcohol Use Standard Drinks/Week Comments Yes 0 (1 standard drink = 0.6 oz pur e alcohol) occassionally PHQ-2 Answer Date Recorded Total Score - Questions 1-9 0 04/0 04/2020 Education Answer Date Recorded What is the highest level of school you have completed or the highest degree you have received? 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 Refill requested for topiramate 25 mg [employer] Neurology: ??Anticonvulsants Passed 11/06/2020 10:33 AM Valid encounter within last 12 months Last refilled date: 10/09/20 #120/0R ANDERSON: 08/13/20 NOV: none scheduled, did not show up to appt on 10/14/20 and 10/19/20 [employer] message sent to patient encouraging her to reschedule follow up appointment. Refill routed to provider for review. documented in this encounter Plan of Treatment Not on file documented as of this encounter Visit Diagnoses Diagnosis Migraine without aura and without status migrainosus, not intractable Migraine without aura, without mention of intractable migraine without mention of status migrainosus documented in this encounter Additional Health Concerns Assessment Noted Time PHQ-9 Depression Total Score: 0 06/12/19 21 12:00 PM CDT documented as of this encounter Care Teams Granite Block Paver Relationship Specialty Start Date End Date Jayda Ross MD PCP - General Family Medicine 07/23/15 04/03/22 Paty Albarado, ROSS LIFT OPERATOR, OFFAL ROLLER [address] [place] [address] PCP - General Advanced Practice Nurse 04/04/2202/04 Franca White MD [address] [place] [address] PCP - General 02/06/24 Krystle Philippe APRN, OFFAL ROLLER [address] [place] [address] Certified Nurse Practitioner 09/28/17 09/02/23 documented as of this encounter
--- OUTSIDE RECORDS SUMMARY | 2024-07-19 21:00 | XMS_ITS | Clinical Summary ---
Author Organization [facility] Address [address] [place] [address] Phone Care Team Providers Care Cold Roller Name Role Phone Franca White MD Primary Care Provide r Allergies No known active allergies Medications Acetaminophen (TYLENOL PO) Take by mouth as needed. Active IBUPROFEN PO Take by mouth as needed. 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 Use as directed. May repeat dose in 2 hours if headache recurs. 12 Tablet 1 4 Active Active Problems Problem Noted Date Diagnosed Date Multiple thyroid nodules 04/04/2022 BMI 30.0-30.9,adult 04/21/2019 Weight gain 04/22/2018 Adjustment disorder with mix ed disturbance of emotions and conduct 09/28/2017 Migraine without aura and wi thout status migrainosus, not intractable 07/27/2015 Anxiety Resolved Problems Problem Noted Date Diagnosed Date Resolved Date Screening for breast cancer 04/22/2018 04/04/2022 BMI 29.0-29.9,adult 09/28/2017 04/21/19 20 Immunizations Immunization Administration Dates Next Due Covid-19, Mrna, Lnp-s, Pf, 30 Mcg/0.3 Ml Dose (P fizer) 10/10/2020,09/19/2020 Influenza Vaccine greater than 3 yrs 01/12/2014 PUR FLU 3+ YRS PRES FREE QUAD IM 11/19/2014 PUR TDAP 7+ YRS IM 07/27/2015 TD VACCINE 07/10/2005 Family History Medical History Relation Name Comments Hypertension Father Cancer Maternal Grandfather stomach Congestive Heart Failure Mother MVp , tachycardia Hypertension Mother Cancer Paternal Grandmother lung, s moker Hypertension Sister Relation Name Status Comments Father Alive Maternal Grandfather Mother Alive Paternal Grandmother Sister Alive Social History Tobacco Use Types Packs/Day [...] on file Legal Sex Female 3:07 AM NETWORKS SOFTWARE CONSULTANT Gender Identity Not on file Sexual Orientation Not on file 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 Not on file Not on file Last Filed Vital Signs Vital Sign Reading Time Taken Comments Blood Pressure 126/86 04/04/2022 7:03 AM NETWORKS SOFTWARE CONSULTANT Pulse 83 04/04/2022 7:03 AM NETWORKS SOFTWARE CONSULTANT Temperature 36.9 C (98.4 F) 02/07/2022 8:48 AM NETWORKS SOFTWARE CONSULTANT Respiratory Rate 16 04/04/2022 7:03 AM NETWORKS SOFTWARE CONSULTANT Oxygen Saturation 79% 04/04/2022 7:03 AM NETWORKS SOFTWARE CONSULTANT Inhaled Oxygen Concentration - - Weight 81 kg (178 lb 9.6 oz) 04/04/2022 7:03 AM NETWORKS SOFTWARE CONSULTANT Height 154.9 cm (5' 1 ) 04/04/2022 7:03 AM NETWORKS SOFTWARE CONSULTANT Body Mass Index 33.75 04/04/2022 7:03 AM NETWORKS SOFTWARE CONSULTANT Plan of Treatment Health Maintenance Due Date Last Done Comments Hepatitis C Virus (HCV) Screening 1976 Hepatitis B Immunization (1 of 3 - 19+ 3-dose series) 07/29/1995 HPV/Cotest 2006 Colonoscopy 2021 Colorectal Cancer Screening 2021 Mammogram 05/28/2022 05/28/2021, 04/13, 04/26/2019, Additional history exists Cervical Cancer Screening (CCS) 11/13/2022 Pap Smear 11/13/2022 11/14/2019, 01/10, 01/11/2012, Additional history exists Influenza Immunization (#1) 2023 11/19/2014, 1 03/14/2013 SARS-COV-2 Immunization ( season) 2023 10/10/2020, 09/19/2020 Td Immunization Every 10 Years (Adults With 1 Tdap) 07/26/2025 07/27/2015, 07/10/2005 Respiratory Syncytial Virus (RSV) Immunization (Adult) (1 - 1-dose 75+ series) 07/29/2051 Discussion re Starting/Frequency of Mammograms Completed 05/28/2021, 05/01/2020, 04/26/2019, Additional history exists Meningococcal Immunization (ACWY) Aged Out No longer eligible based on patient's age to complete this topic Pneumococcal Immunization Combined Aged Out No longer eligible based on patient's age to complete this topic Rotavirus Immunization Aged Out No lo nger eligible based on patient's age to complete this topic Procedures Procedure Name Priority Date/Time Associated Diagnosis Comments MAMMOGRAM BILATERAL GENERIC 05/28/2021 12:00 AM CDT PATHOLOGY CYTOLOGY CNC SUPERVISOR Routine 01/26/2017 from Last 3 Months or Most Recently Relevant to Health Maintenance Results * MAMMOGRAM BILATERAL MISCELLANEOUS (05/28/2021 12:00 AM CDT) 05/28/2021 us Jayda Ross MD IMG MAMMO ORDERABLES Chapis l Result SCAN * PATHOLOGY CYTOLOGY CNC SUPERVISOR (01/26/2017) Specimen of unknown material (specimen) us Krystle Philippe APRN, MACHINE CLOTH TRIMMER PATHOLOGY/CYT OLOGY ORDERABLES Final Result from Last 3 Months or Most Recently Relevant to Health Maintenance Insurance [facility] Care Teams Cold Roller Relationship Specialty Start Date End Date Franca White MD [address] [facility] [address] [place] [address] PCP - General 02/06/24
--- OUTSIDE RECORDS SUMMARY | 2024-07-19 21:00 | XMS_ITS | Encounter Summary ---
Author Organization [facility] Address [address] [facility] [place] [address] Phone Care Team Providers Care Scientific Programmer Analyst Name Role Phone Jayda Ross MD Primary Care Provider Un available Krystle Philippe EDGE BURNISHER UPPERS, CAMPAIGN ASSOCIATE Unavailable Paty Albarado EDGE BURNISHER UPPERS, CAMPAIGN ASSOCIATE Primary Care Provi jonah Franca White MD Primary Care Provide r Reason for Visit * Reason Comments Medication Refill Encounter Details Date Type Department Care Team (Late st Contact Info) Description 04/25/2021 Refill [facility] - Family Medicine - Normal [address] [facility] [address] [place], [place] [id number] Paty Albarado APRN, CAMPAIGN ASSOCIATE [address] [facility] [address] [place] [address] Medication Refill Social History Tobacco Use Types [...] on file Legal Sex Female 3:07 AM 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 Refill requested for SUMAtriptan (IMITREX) 100 MG Tablet Not Delegated - Serotonin Agonists (Oral and Nasal) Protocol Failed 04/25/2021 12:14 AM This refill cannot be delegated; check utilization no more than 9 doses per month No documented Systolic BP > 200 within past 3 months Visit with relevant provider in past 24 months or upcoming 90 days Number of active Serotonergic medications less than 3 Last refilled date: 06/11/20 #[id number] ANDERSON: 08/13/20 NOV: Not scheduled Refill pending provider review/approval ION INSPECTOR documented in this encounter Plan of Treatment [...] documented as of this encounter Care Teams Scientific Programmer Analyst Relationship Specialty Start Date End Date Jayda Ross MD PCP - General Family Medicine 07/23/15 04/03/22 Paty Albarado APRN, CAMPAIGN ASSOCIATE [address] [place] [address] PCP - General Advanced Practice Nurse 04/04/2202/04 Franca White MD [address] [place] [address] PCP - General 02/06/24 Krystle Philippe, EDGE BURNISHER UPPERS, CAMPAIGN ASSOCIATE [address] [place] [address] Certified Nurse Practitioner 09/28/17 09/02/23 documented as of this encounter
[2024-07-19] MEDS: SODIUM CHLORIDE 0.9% IV 1,000 ML 999 ML IV CONT (21:27)
[2024-07-19] MEDS: ACETAMINOPHEN 500 MG TABLET 1000 MG PO (21:29)
[2024-07-19] MEDS: KETOROLAC 15 MG/ML VIAL (*BKC) IV PUSH (21:30)
[2024-07-19] MEDS: PROCHLORPERAZINE EDISYLATE 10 MG/2 ML VIAL IM (21:30)
[2024-07-19] MEDS: diphenhydrAMINE HCl INJ 50 MG/ML VIAL 25 MG IV PUSH (21:32)
--- NOTE | 2024-07-19 21:36 | ED.GENADULT ---
HPI - General Adult General Chief complaint: Headache Stated complaint: Migraine Time Seen by Provider: 07/19/24 21:01 History of Present Illness HPI narrative: This is a 48-year-old female with history of migraines presenting with headache. Patient developed a total body headache and noon today. She took a dose of sumatriptan at that time minimal relief. She then repeated at approximately 4:00 p.m. later. He is still having debilitating headache. She has not had any loss of consciousness, trauma, visual changes, fevers, or neck pain. Pain was not maximal in onset. Related Data Home Medications ?Medication ?Instructions ?Recorded ?Confirmed ?Last Taken ?Type citalopram 40 mg tablet 40 mg PO DAILY 12/05/22 03/25/24 03/24/24 History sumatriptan succinate 100 mg See Rx Instructions PO .COMPLEX 11/14/23 03/25/24 03/24/24 History tablet (Imitrex) Allergies Allergy/AdvReac Type Severity Reaction Status Date / Time No Known Allergies Allergy Verified 07/19/24 20:58 [facility] Past Medical History Medical History Colon cancer screening PIH ( induced hypertension) Encounter for related examination in second trimester Migraine resulting from in-vitro fertilization Surgical History Surgical History [place] teeth extracted Family History Family History Father Asthma Hypertension Heart disease Mother Heart disease Sibling Alcoholism Hypertension Grandparent Stomach cancer Cerebrovascular accident Grandparent Lung cancer Social History Social History Smoking status: Never smoker Second hand tobacco smoke exposure: No Alcohol intake: never Substance use: never Substance use type: does not use Do You Feel Safe in your Home?: Yes Lack of Transportation: No Lack of Food: Never True Current Housing: I Have Housing Concerned About Future Housing: No Difficulty Paying Gas/Electric Bills: No Difficulty Paying for Meds: No Currently Unemployed: No Education: Bachelor's Degree Difficulty w/ Childcare or Family Care: No Living arrangements: with family Additional living arrangements comments: Occupation/Education: occupation 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 EYES: EOMI, PERRL NOSE: Atraumatic NECK: Trachea midline RESPIRATORY: No increased rate of breathing CTAB CARDIOVASCULAR: RRR, no peripheral edema ABDOMINAL: Non-distended nontender MUSCULOSKELETAl: No obvious deformities NEURO: Alert. Cranial nerves 2-12 grossly intact. Sensation light touch, motor function cerebellar function intact for 4 extremities. Gait exam was normal. SKIN:: Warm, dry. Normal color PSYCHIATRIC: Normal affect Course Vital Signs Vital signs: Vital Signs Temperature 98 F 07/19/24 21:00 Pulse Rate 81 07/19/24 21:00 Respiratory Rate 18 07/19/24 21:00 Blood Pressure 163/123 H 07/19/24 21:00 Pulse Oximetry 99 07/19/24 21:00 Oxygen Delivery Room Air 07/19/24 21:00 Temperature 98 F 07/19/24 21:00 Pulse Rate 81 07/19/24 21:00 Respiratory Rate 18 07/19/24 21:00 Blood Pressure 163/123 H 07/19/24 21:00 Pulse Oximetry 99 07/19/24 21:00 Oxygen Delivery Room Air 07/19/24 21:00 Medical Decision Making MDM Narrative Medical decision making narrative: -Course: 48-year-old female history of migraines presenting with headache. Neurologic exam is normal. No red flags on history or physical. Patient treated with a migraine cocktail with improvement. Patient be discharged follow-up with primary care physician. -DDX includes but is not limited to: Migraine, tension headache, ICH hemorrhage Vital Signs Vital Signs: Vital Signs Temperature 98 F 07/19/24 21:00 Pulse Rate 81 07/19/24 21:00 Respiratory Rate 18 07/19/24 21:00 Blood Pressure 163/123 H 07/19/24 21:00 Pulse Oximetry 99 07/19/24 21:00 Oxygen Delivery Room Air 07/19/24 21:00 Temperature 98 F 07/19/24 21:00 Pulse Rate 81 07/19/24 21:00 Respiratory Rate 18 07/19/24 21:00 Blood Pressure 163/123 H 07/19/24 21:00 Pulse Oximetry 99 07/19/24 21:00 Oxygen Delivery Room Air 07/19/24 21:00 Discharge Plan Discharge Clinical Impression: Migraine Patient Disposition: Home Condition: Stable Instructions: Antibiotic Form, Acute Headache (ED) Additional Instructions: Please use over the coutner Motrin/Tylenol and sumatriptan as needed migraines. Please follow-up your primary care physician for further management. Return if you develop any or worsening symptoms. Patient Language: Swiss Prescriptions: No Action citalopram 40 mg tablet 40 mg PO DAILY sumatriptan succinate [Imitrex] 100 mg tablet See Rx Instructions PO .COMPLEX Rx Instructions: take 1 tab at onset of headache; if no relief, may repeat 1 tab after at least 2 hrs; max = 2 tabs/24 hrs PO Follow-up/Referrals: Anuradha,Enzo Zarate MD [Primary Care Provider] -
[2024-07-19 22:30] VITALS: BP 120/76; PULSE 76; RESP 20; TEMP 36.1; O2SAT 98
== END 2024-07-19 22:35 | disposition home or self-care (01) ==
PROVIDERS: Emergency Provider Emergency Medicine; PCP Family Medicine
DX: G43.909 Migraine, unspecified, not intractable, without status migrainosus (principal)
CPT/HCPCS: 96361; 96372; 96374; 96375; 99284; A9270; J0780; J1200; J1885; J7030